=== PATIENT | female | born 1950 | race Caucasian/White ===

== ENCOUNTER → 2019-08-26 13:57 | Outpatient (CLI) | payer MEDICARE, SELFPAY ==
--- NOTE | ~2019-08-26 | MM_ITS ---
EXAMINATION: MM diagnostic aster LT w liliya HISTORY: History of breast cancer TECHNIQUE: Craniocaudal, mediolateral, and mediolateral oblique 3-D tomosynthesis images of the left breast were performed and synthetic 2-D images were generated. CAD analysis was submitted and interpr eted. COMPARISON: 10/29/2018, 09/08/2012 BREAST PARENCHYMAL COMPOSITION: There are scattered areas of fibroglandular density. FINDINGS: There is no evidence of suspicious mass, calcification, or architectural distortion to sug gest malignancy. There has been no suspicious interval change. IMPRESSION: 1. No mammographic evidence of malignancy. 2. Recommend routine screening mammography in one year. BI-RADS Category 1: Negative Reviewed, dictated and finalized at location A. FACILITY MANAGER
== END ==
PROVIDERS: PCP Family Medicine; Visit Provider Internal Medicine Hematology & Oncology
DX: D05.11 Intraductal carcinoma in situ of right breast (principal)
CPT/HCPCS: 77061; 77065; G0279

== ENCOUNTER 2019-10-11 07:47 | Outpatient (CLI) | payer MEDICARE, SELFPAY ==
[2019-10-11 08:17] LABS: Creatinine Urine 103.3 mg/dL
[2019-10-11 08:21] LABS: MALB Creatinine Ratio 21.2 mg/g (0-30); Microalbumin Urine Random 21.9 mg/L (0-16.7)
[2019-10-11 08:25] LABS: Hemoglobin A1C 5.9 % (<5.7)
[2019-10-11 10:35] LABS: Alanine Aminotransferase 41 U/L (4-35); Albumin Level 4.5 g/dL (3.5-5.1); Alkaline Phosphatase 93 U/L (38-126); Aspartate Amino Transferase 36 U/L (14-36); Bilirubin,Total 0.3 mg/dL (0.2-1.3); Blood Urea Nitrogen 20 mg/dL (7-17); Calcium 8.9 mg/dL (8.4-10.2); Carbon Dioxide 28 mmol/L (22-30); Chloride 99 mmol/L (98-107); Estimated Glomerular Filt Rate > 60; Glucose 106 mg/dL (65-105); Sodium 136 mmol/L (137-145)
== END 2019-10-11 07:48 | disposition home or self-care (01) ==
PROVIDERS: PCP Family Medicine; Visit Provider Family Medicine
DX: I10 Essential (primary) hypertension (principal); E11.9 Type 2 diabetes mellitus without complications
CPT/HCPCS: 36415; 80053; 82043; 83036

== ENCOUNTER → 2020-02-08 14:10 | Outpatient (CLI) | payer MEDICARE, SELFPAY ==
--- NOTE | ~2020-02-08 | MM_ITS ---
EXAMINATION: MM diagnostic aster RT w liliya HISTORY: Six-month follow-up for right breast calcifications, history of right breast DCIS. TECHNIQUE: Additional 3-D tomosynthesis images of the right breast were performed and synthetic 2-D i mages were generated. Magnification views are also obtained. CAD analysis was submitted and interpret ed. COMPARISON: 06/07/2019,11/12/2018, 10/29/2018,09/08/2012 BREAST PARENCHYMAL COMPOSITION: There are scattered areas of fibroglandular density. FINDINGS: There is a persistent group of fine pleomorphic calcifications at the 9:00 location 10 cm f rom the nipple in the right breast. These are located approximately 2.5 cm posterior to the previousl y biopsied DCIS and may have slightly increased in number since the comparison examination. In additi on, morphology is similar to the biopsy-proven DCIS. No suspicious mass or architectural distortion a re identified. IMPRESSION: 1. Persistent suspicious grouped calcifications in the right breast with possible slight increase in number since the prior examination. 2. Stereotactic biopsy is recommended. These findings and recommendations were discussed with Dr. Anamaria Hauser MD at 1522 hours on 02/08/2020. Up to this point, patient has preferred tamoxifen only th erapy. BI-RADS category 4, suspicious findings. Reviewed, dictated and finalized at location A. IMPRESSION: 1. Persistent suspicious grouped calcifications in the right breast with possib le slight increase in number since the prior examination. 2. Stereotactic biopsy is recommended. These findings and recommendations were discussed with Dr. Jono Hauser MD at 1522 hours on 02/08/2020. Up to this po int, patient has preferred tamoxifen only therapy. BI-RADS category 4, suspicious findings.
== END ==
PROVIDERS: PCP Family Medicine; Visit Provider Internal Medicine Hematology & Oncology
DX: D05.10 Intraductal carcinoma in situ of unspecified breast (principal); R92.8 Other abnormal and inconclusive findings on diagnostic imaging of breast
CPT/HCPCS: 77061; 77065; G0279

== ENCOUNTER 2020-03-14 08:42 | Outpatient (CLI) | payer MEDICARE, SELFPAY ==
--- NOTE | ~2020-03-14 | US_ITS ---
US breast RT limited DATE: 03/14/2020 09:51 INDICATION: Indeterminate microcalcifications in right breast TECHNIQUE: High-resolution ultrasound imaging from 8:00 to 12:00 COMPARISON: 02/08/2020 diagnostic right digital mammogram 06/07/2019 diagnostic right digital mammogram 11/12/2018 diagnostic right digital mammogram 09/08/2012 bilateral digital screening mammogram FINDINGS: No suspicious mass or shadowing is detected. There is no sonographic correlate for the subt le microcalcifications identified posteriorly in the upper outer quadrant of the right breast. IMPRESSION: BI-RADS Category 4: Suspicious abnormality; stereotactic biopsy is recommended for the mi crocalcifications in the posterior aspect of the upper outer the quadrant of the right breast which w ere not present on 09/08/2012 mammogram, making arterial calcification unlikely Recommendation: Stereotactic biopsy of right breast microcalcifications in the posterior upper outer quadrant Reviewed, dictated and finalized at Location A. Reviewed, dictated and finalized at location A. IMPRESSION: BI-RADS Category 4: Suspicious abnormality; stereotactic biopsy is recommended for the microcalcifications in the posterior aspect of the upper ou ter the quadrant of the right breast which were not present on 09/08/2012 mammog chloe, making arterial calcification unlikely Recommendation: Stereotactic biopsy of right breast microcalcifications in the posterior upper outer quadrant
--- NOTE | ~2020-03-14 | MM_ITS ---
The patient presented for*detected biopsy of indeterminate microcalcifications in the posterior upper outer quadrant of the right breast. At the mammography department within the cancer Center I reviewed the patient's 02/08/2020 diagnostic right digital mammogram, with comparison to 06/07/2019 and 10/29/2018 mammogram examinations as well. T here were relatively stable microcalcifications in a relatively linear distribution, raising concern for possible arterial calcifications. For this reason, I requested an ultrasound examination of the involved area. On that ultrasound exami nation there was no sonographic correlate; there were no masses or suspicious shadowing. Later, additional mammogram images from 09/08/2012 bilateral digital mammogram screening examination b ecame available. These reveal no calcifications in the area of interest. It is unlikely that rather e xtensive focal arterial calcifications would have developed in this isolated area only in the interva l since 09/08/2012. Therefore I do not believe these arterial calcifications and I would recommend pro ceeding with the stereotactic biopsy at this time. IMPRESSIONS: BI-RADS Category 4: Suspicious abnormality Recommendation: Stereotactic biopsy of upper outer quadrant posterior right breast microcalcification s Reviewed, dictated and finalized at location A. IMPRESSIONS: BI-RADS Category 4: Suspicious abnormality Recommendation: Stereotactic biopsy of upper outer quadrant posterior right kehinde ast microcalcifications
== END 2020-03-14 08:43 | disposition home or self-care (01) ==
LOC: ANHIMG 08:46
PROVIDERS: PCP Family Medicine; Visit Provider Surgery
DX: R92.8 Other abnormal and inconclusive findings on diagnostic imaging of breast (principal)
CPT/HCPCS: 76642

== ENCOUNTER 2020-04-01 07:48 | Outpatient (CLI) | payer MEDICARE, SELFPAY ==
[2020-04-01 08:48] LABS: Basophils Absolute Auto 0.1 K/mm3 (0.0-0.1); Basophils Percent Auto 0.9 % (0.2-1.2); Eosinophils Absolute Auto 0.2 K/mm3 (0-0.3); Eosinophils Percent Auto 2.7 % (0-4.4); Hematocrit 39.6 % (37.0-47.0); Immature Granulocyte Absolute 0.01 K/mm3 (0.00-0.031); Immature Granulocyte Percent A 0.1 % (0-0.5); Lymphocytes Absolute Auto 1.88 K/mm3 (0.9-3.2); Lymphocytes Percent Auto 28.1 % (18.3-44.2); Mean Corpuscular HGB Conc 32.8 g/dl (32-36); Mean Corpuscular Hemoglobin 31.7 pg (26-34); Mean Corpuscular Volume 96.6 fl (80-100); Monocytes Absolute Auto 0.6 K/mm3 (0.1-0.6); Monocytes Percent Auto 8.4 % (2.6-8.5); Neutrophils Percent Auto 59.8 % (45.5-73.1); Platelet Count Result 336 k/mm3 (150-375); Red Cell Distribution Width 13.4 % (11.5-14.5); White Blood Count 6.7 K/mm3 (4.5-10.0)
[2020-04-01 09:01] LABS: Alanine Aminotransferase 32 U/L (4-35); Albumin Level 4.5 g/dL (3.5-5.1); Alkaline Phosphatase 76 U/L (38-126); Anion Gap 10 mmol/L (8-16); Aspartate Amino Transferase 32 U/L (14-36); Bilirubin,Total 0.7 mg/dL (0.2-1.3); Blood Urea Nitrogen 32 mg/dL (7-17); Calcium 9.1 mg/dL (8.4-10.2); Carbon Dioxide 30 mmol/L (22-30); Chloride 96 mmol/L (98-107); Cholesterol 205 mg/dL (0-200); Estimated Glomerular Filt Rate 50; Glucose 109 mg/dL (65-105); HDL Direct 28 mg/dL; Potassium 3.9 mmol/L (3.4-5.0); Sodium 136 mmol/L (137-145); Triglycerides 216 mg/dL (<150)
[2020-04-01 09:11] LABS: LDL Cholesterol Direct 133 mg/dL
[2020-04-01 09:42] LABS: Vitamin D 25 Hydroxy 40.8 ng/mL
[2020-04-01 10:11] LABS: Hemoglobin A1C 5.7 % (<5.7)
[2020-04-01 12:59] LABS: Microalbumin Urine Random 19.7 mg/L (0-16.7)
[2020-04-01 13:06] LABS: Creatinine Urine 48.4 mg/dL; MALB Creatinine Ratio 40.7 mg/g (0-30)
== END 2020-04-01 07:49 | disposition home or self-care (01) ==
PROVIDERS: PCP Family Medicine; Visit Provider Family Medicine
DX: E78.5 Hyperlipidemia, unspecified (principal); E11.9 Type 2 diabetes mellitus without complications; I10 Essential (primary) hypertension; G62.9 Polyneuropathy, unspecified; E55.9 Vitamin D deficiency, unspecified
CPT/HCPCS: 36415; 80053; 80061; 82043; 82306; 82607; 83036; 84443; 85025

== ENCOUNTER 2020-06-29 12:31 | Outpatient (CLI) | payer MEDICARE, SELFPAY ==
--- NOTE | 2020-06-29 15:00 | NEURO_ITS ---
Impression: # Complains of weakness. Known diabetic. # Polyphasic responses with neurogenic changes in muscles. 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 Nerve Conduction Studies Anti Sensory Summary Table Stim Site NR Peak (ms) P-T Amp (?V) Site1 Site2 Delta-P (ms) Dist (cm) Jorge (m/s) Left Median Anti Sensory (2-3nd Digit) NO RESPONSE Wrist NR Wrist 2-3nd Digit 14.0 Wrist NR Wrist 2-3nd Digit 14.0 Right Median Anti Sensory (2-3nd Digit) Wrist 3.2 28.5 Wrist 2-3nd Digit 3.2 14.0 44 Wrist 3.8 14.4 Wrist 2-3nd Digit 3.2 14.0 44 Left Radial Anti Sensory (Base 1st Digit) Wrist 2.3 11.6 Wrist Base 1st Digit 2.3 0.0 Right Radial Anti Sensory (Base 1st Digit) Wrist 2.6 38.6 Wrist Base 1st Digit 2.6 0.0 Left Ulnar Anti Sensory (5th Digit) Wrist 2.8 15.2 Wrist 5th Digit 2.8 14.0 50 Right Ulnar Anti Sensory (5th Digit) Wrist 2.7 30.9 Wrist 5th Digit 2.7 14.0 52 Motor Summary Table Stim Site NR Onset (ms) O-P Amp (mV) Site1 Site2 Delta-0 (ms) Dist (cm) Jorge (m/s) Left Median Motor (Abd Poll Brev) Wrist 4.2 0.8 Elbow Wrist 5.3 29.0 55 Elbow 9.5 0.7 Right Median Motor (Abd Poll Brev) Wrist 3.9 3.3 Elbow Wrist 5.9 28.0 47 Elbow 9.8 1.6 Left Ulnar Motor (Abd Dig Minimi) Wrist 3.0 4.5 A Elbow Wrist 5.5 30.0 55 A Elbow 8.5 3.0 Right Ulnar Motor (Abd Dig Minimi) Wrist 3.3 4.9 A Elbow Wrist 5.9 31.0 53 A Elbow 9.2 3.2 F Wave Studies NR F-Lat (ms) L-R F-Lat (ms) Left Median (Mrkrs) (Abd Poll Brev) 25.90 1.46 Right Median (Mrkrs) (Abd Poll Brev) 27.36 1.46 Left Ulnar (Mrkrs) (Abd Dig Min) 26.66 0.77 Right Ulnar (Mrkrs) (Abd Dig Min) 25.88 0.77 EMG Side Muscle Nerve Root Ins Act Fibs Amp Dur Recrt Comment Right 1stDorInt Ulnar C8-T1 Nml Nml Decr >12ms Reduced Right Ext Indicis Radial (Post Int) C7-8 Nml Nml Nml Nml Nml Right Ext Digitorum Radial (Post Int) C7-8 Nml Nml Decr >12ms Reduced Right BrachioRad Radial C5-6 Nml Nml Nml Nml Nml Right PronatorTeres Median C6-7 Nml Nml Nml Nml Nml Right Abd Poll Brev Median C8-T1 Nml Nml Decr >12ms Reduced Left 1stDorInt Ulnar C8-T1 Nml Nml Decr >12ms Reduced Left Ext Indicis Radial (Post Int) C7-8 Nml Nml Nml Nml Nml Left Ext Digitorum Radial (Post Int) C7-8 Nml Nml Decr >12ms Reduced Left BrachioRad Radial C5-6 Nml Nml Nml Nml Nml Left PronatorTeres Median C6-7 Nml Nml Nml Nml Nml Left Abd Poll Brev Median C8-T1 Nml Nml Decr >12ms Reduced Right ABD Dig Min Ulnar C8-T1 Nml Nml Decr >12ms Reduced Left ABD Dig Min Ulnar C8-T1 Nml Nml Decr >12ms Reduced MTDD
== END 2020-06-29 12:32 | disposition home or self-care (01) ==
PROVIDERS: PCP Family Medicine; Visit Provider Psychiatry & Neurology Neurology
DX: G62.9 Polyneuropathy, unspecified (principal)
CPT/HCPCS: 95886; 95911

== ENCOUNTER → 2020-07-06 09:19 | Outpatient (CLI) | payer MEDICARE, SELFPAY ==
--- NOTE | ~2020-07-06 | MM_ITS ---
EXAMINATION: MM diagnostic aster BI w liliya HISTORY: Follow-up right breast calcifications. History of DCIS. TECHNIQUE: Additional 3-D tomosynthesis images of the breasts were performed and synthetic 2-D images were generated. CAD analysis was submitted and interpreted. COMPARISON: Comparison to multiple prior studies sequentially, with oldest reviewed study dated 05/28. BREAST PARENCHYMAL COMPOSITION: Breast composed of scattered areas of fibroglandular density. FINDINGS: The there is a tissue marker from previous biopsy in the upper outer quadrant of the right breast. Just posterior to the biopsy clip there is a cluster of indeterminate calcifications which marshall ve increased slightly in number and density compared with prior studies. IMPRESSION: 1. Clustered indeterminate right breast calcifications, upper outer quadrant. 2. Stereotactic right breast biopsy is strongly recommended. BI-RADS category 4, suspicious findings. Dr. Mascorro discussed with Dr. Jono Hauser MD at 07/06/2020 11:08 TRUCK SALES REPRESENTATIVE. Reviewed, dictated and finalized at location A. K SALES REPRESENTATIVE
== END ==
PROVIDERS: PCP Family Medicine; Visit Provider Internal Medicine Hematology & Oncology
DX: D05.11 Intraductal carcinoma in situ of right breast (principal); R92.8 Other abnormal and inconclusive findings on diagnostic imaging of breast
CPT/HCPCS: 77062; 77066; G0279

== ENCOUNTER → 2020-10-10 12:03 | Outpatient (CLI) | payer MEDICARE, SELFPAY ==
--- NOTE | ~2020-10-10 | XR_ITS ---
EXAMINATION: XR_[id number]_CR EXAM DATE: 10/10/2020 12:31 INDICATION: Neuropathy in bilateral hands x 4-6 months getting worse. No recent injury. No surgery. TECHNIQUE: Cervical spine frontal, lateral, swimmers projection. There is no prior study for compar tristian. FINDINGS: Severe disc disease at C5-6 and C6-7, moderate to severe at C3-4. There is 2 mm degenerati ve anterolisthesis C4 on C5 and retrolisthesis C5 on C6. There is severe cervical arthropathy and mercy pect significant multilevel neural foraminal stenosis. There are no acute fractures identified. Preve rtebral soft tissue and pre-dens space are within normal limits. IMPRESSION: Severe cervical spondylosis. Reviewed, dictated and finalized at location A.
== END ==
PROVIDERS: Visit Provider Nurse Practitioner
DX: R20.2 Paresthesia of skin (principal); M47.892 Other spondylosis, cervical region
CPT/HCPCS: 72040

== ENCOUNTER 2020-10-10 12:42 | Outpatient (CLI) | payer MEDICARE, SELFPAY ==
[2020-10-10 13:57] LABS: Alanine Aminotransferase 48 U/L (4-35); Albumin Level 4.6 g/dL (3.5-5.1); Alkaline Phosphatase 84 U/L (38-126); Anion Gap 11 mmol/L (8-16); Aspartate Amino Transferase 44 U/L (14-36); Bilirubin,Total 0.5 mg/dL (0.2-1.3); Blood Urea Nitrogen 20 mg/dL (7-17); Calcium 9.6 mg/dL (8.4-10.2); Carbon Dioxide 29 mmol/L (22-30); Chloride 95 mmol/L (98-107); Estimated Glomerular Filt Rate 49; Glucose 104 mg/dL (65-105); Potassium 3.8 mmol/L (3.4-5.0); Sodium 135 mmol/L (137-145)
== END 2020-10-10 12:43 | disposition home or self-care (01) ==
PROVIDERS: Visit Provider Family Medicine
DX: E11.9 Type 2 diabetes mellitus without complications (principal); I10 Essential (primary) hypertension
CPT/HCPCS: 36415; 80053; 83036

== ENCOUNTER → 2021-01-01 08:47 | Outpatient (CLI) | payer MEDICARE, SELFPAY ==
--- NOTE | ~2021-01-01 | MMUS_ITS ---
EXAMINATION: MM diagnostic aster RT w liliya, US breast RT limited HISTORY: Microcalcifications TECHNIQUE: ML, MLO and craniocaudal 3-D tomosynthesis images of the right breast were performed and s ynthetic 2-D images were generated. Magnification views in all 3 projections. CAD analysis was submit malgorzata and interpreted. High resolution upper outer and lower-outer right breast ultrasound was performe d. COMPARISON: 07/06/2020 bilateral diagnostic digital mammogram 03/14/2020 limited right breast ultrasound 02/08/2020, 06/07/2019, 11/12/2018 diagnostic right digital mammogram examinations BREAST PARENCHYMAL COMPOSITION: The breasts are almost entirely fatty. FINDINGS: MAMMOGRAPHIC FINDINGS: There is a biopsy marker in the outer mid right breast; history of prior diagnosis of ductal carcinom a in situ. Pleomorphic microcalcifications are again noted in the posterior outer mid right breast, in a branchi ng configuration. These are relatively stable since 11/12/2018 but still suspicious in appearance. Arnulfo reotactic biopsy is recommended. Occasional benign calcifications are noted elsewhere in the right breast. No suspicious mass, architectural distortion, skin thickening or retraction is noted. ULTRASOUND: Upper outer and lower-outer right breast ultrasound examination reveals no suspicious mass or shadowi ng. IMPRESSION: 1. Suspicious persistent grouped microcalcifications in the posterior outer mid right breast 2. Stereotactic biopsy should be considered. BI-RADS category 4, suspicious findings; stereotactic right breast biopsy should be considered. Reviewed, dictated and finalized at location A. IMPRESSION: 1. Suspicious persistent grouped microcalcifications in the posterior outer mid right breast 2. Stereotactic biopsy should be considered. BI-RADS category 4, suspicious findings; stereotactic right breast biopsy shoul d be considered.
== END ==
PROVIDERS: PCP Family Medicine; Visit Provider Internal Medicine Hematology & Oncology
DX: R92.0 Mammographic microcalcification found on diagnostic imaging of breast (principal); R92.8 Other abnormal and inconclusive findings on diagnostic imaging of breast
CPT/HCPCS: 76642; 77061; 77065; G0279

== ENCOUNTER → 2021-01-09 13:26 | Outpatient (CLI) | payer MEDICARE, SELFPAY ==
--- NOTE | 2021-01-23 15:21 | WPDHOMESLEEP ---
Sleep Study - Home Unattended Date of Study: 01/09/21 Ordering Provider: Alana Delgado MD Interpreting Provider: Robyn Saul MD Home Sleep Study Type: Apnea Link Air Height: 1.7 m Weight: 95.254 kg Body Mass Index: 32.8 Neck Circumference (inches): 15.5 [place]: 13 Reason for Sleep Study Hypersomnolence Sleep History Paty Vaughn is a 70 year old female who is always tired and sleepy during the day. She wakes up throughout the night to urinate. She has neuropathy in her legs and feet. She does not awaken from sleep feeling short of breath. She rarely awakens at night with heartburn, belching or coughing. She frequently snores. She does not wake up gasping for breath at night. She does not have breathing problems at night observed by others. She rarely sweats excessively at night. She does not notice her heart pounding or beating irregularly night. She frequently falls asleep during the day frequently falls asleep involuntarily, rarely falls asleep while driving. She does not fall asleep with laughing or crying. She does not have loss of muscle tone was strong emotion. She frequently has daytime difficulties due to excessive sleepiness. She does not feel paralyzed on waking or falling asleep. She occasionally has vivid dreamlike scenes upon awakening or falling asleep. She does not feel afraid to go to sleep. She rarely has nightmares. She occasionally remembers her dreams. She occasionally has racing thoughts. She occasionally feels sad or depressed. She rarely has anxiety. She frequently has muscular tension. She occasionally notices parts of her body jerking. She frequently kicks at night, frequently has crawling and aching feelings in her legs and frequently has leg pain at night. She does not have morning jaw pain and does not grind her teeth during sleep. She frequently is bothered by pain during the day, frequently awakened by pain at night and frequently wakes up feeling stiff in the morning with sore achy muscles. She frequently wakes up with pain in the spine and neck. She has panic, dizziness, sexual problems and memory problems. She sometimes has concentration difficulties. Normal bedtime between 8 and 9:00 p.m. falling asleep in 5-10 minutes waking 1-2 times at night. While awake she stays awake for 5-10 minutes. During these break she goes to the bathroom, watches TV and takes medications. She wakes in the morning between 430 and 5:00 a.m. On the weekends she goes to bed at 9 and wakes between 9 and 10:00 a.m., and this indicates recovery sleep on the weekends. She sometimes takes naps. A short nap may be refreshing. She is usually drowsy in the morning for 3 hours or longer. She feels better in the evening compared other times of day. Habits: she never smokes. No caffeine or alcohol. Recreational: CBD. [facility] Past Medical History Medical History CKD (chronic kidney disease) stage 3, GFR 30-59 ml/min Depression DJD (degenerative joint disease) of thoracic spine Dyslipidemia Essential (primary) hypertension Female stress incontinence Metatarsal fracture #5 - 1997 Osteopenia Peripheral polyneuropathy Plantar fasciitis Reactive depression 1997 Type 2 diabetes mellitus with hyperglycemia, without long-term current use of insulin Unspecified osteoarthritis, unspecified site Unsteady gait Urinary Incontinence Vitamin D deficiency Surgical History Surgical History History of arthroscopic knee surgery 2000 History of biopsy right breast - DCIS - 2017 History of foot surgery left foot in the History of hip surgery right hip - Nov, 2017 History of removal of cyst left breast - 2003 History of wisdom tooth extraction Family History Family History Other Diabetes mellitus Family history of coronary ar
[2021-01-23 15:23] VITALS: BMI 32.8
== END ==
PROVIDERS: PCP Family Medicine; Visit Provider Family Medicine
DX: G47.10 Hypersomnia, unspecified (principal); G47.33 Obstructive sleep apnea (adult) (pediatric)
CPT/HCPCS: 95806

== ENCOUNTER 2021-03-16 08:44 | Outpatient (CLI) | payer MEDICARE, SELFPAY ==
--- NOTE | 2021-04-09 14:13 | WPDSLEEPSTUD ---
Sleep Study Date of Study: 03/16/21 Ordering Provider: Alana Delgado MD Interpreting Physician: Robyn Saul MD Sleep Study Type: CPAP Titration Height: 1.7 m Weight: 95.254 kg Body Mass Index: 32.8 Neck Circumference (inches): 17 [place]: 6 Reason for Sleep Study *ApneaLink home sleep test 01/15/2021 with moderate mixed sleep apnea with an AHI of 17, desaturation to 80%, 11 minutes spent below 88% which was 3% of the study and snoring. She had a mixture of apneas including unclassified, obstructive and central apneas were the majority 47%. She presents for titration. Sleep History Paty Vaughn is a 70 year old female who is always tired and sleepy during the day. She wakes up throughout the night to urinate. She has neuropathy in her legs and feet. She does not awaken from sleep feeling short of breath. She rarely awakens at night with heartburn, belching or coughing. She frequently snores. She does not wake up gasping for breath at night. She does not have breathing problems at night observed by others. She rarely sweats excessively at night. She does not notice her heart pounding or beating irregularly night. She frequently falls asleep during the day frequently falls asleep involuntarily, rarely falls asleep while driving. She does not fall asleep with laughing or crying. She does not have loss of muscle tone was strong emotion. She frequently has daytime difficulties due to excessive sleepiness. She does not feel paralyzed on waking or falling asleep. She occasionally has vivid dreamlike scenes upon awakening or falling asleep. She does not feel afraid to go to sleep. She rarely has nightmares. She occasionally remembers her dreams. She occasionally has racing thoughts. She occasionally feels sad or depressed. She rarely has anxiety. She frequently has muscular tension. She occasionally notices parts of her body jerking. She frequently kicks at night, frequently has crawling and aching feelings in her legs and frequently has leg pain at night. She does not have morning jaw pain and does not grind her teeth during sleep. She frequently is bothered by pain during the day, frequently awakened by pain at night and frequently wakes up feeling stiff in the morning with sore achy muscles. She frequently wakes up with pain in the spine and neck. She has panic, dizziness, sexual problems and memory problems. She sometimes has concentration difficulties. Normal bedtime between 8 and 9:00 p.m. falling asleep in 5-10 minutes waking 1-2 times at night. While awake she stays awake for 5-10 minutes. During these break she goes to the bathroom, watches TV and takes medications. She wakes in the morning between 430 and 5:00 a.m. On the weekends she goes to bed at 9 and wakes between 9 and 10:00 a.m., and this indicates recovery sleep on the weekends. She sometimes takes naps. A short nap may be refreshing. She is usually drowsy in the morning for 3 hours or longer. She feels better in the evening compared other times of day. Habits: She never smoked tobaco. No caffeine or alcohol. Recreational: CBD. [facility] Past Medical History Medical History CKD (chronic kidney disease) stage 3, GFR 30-59 ml/min Depression DJD (degenerative joint disease) of thoracic spine Dyslipidemia Essential (primary) hypertension Female stress incontinence Metatarsal fracture #5 - 1998 Osteopenia Peripheral polyneuropathy Plantar fasciitis Reactive depression 1998 Type 2 diabetes mellitus with hyperglycemia, without long-term current use of insulin Unspecified osteoarthritis, unspecified site Unsteady gait Urinary Incontinence Vitamin D deficiency Surgical History Surgical History History of arthroscopic knee surgery 2000 History of biopsy right breast - DCIS - 2018 History of foot surgery left foot in the s Hi
[2021-04-09 14:21] VITALS: BMI 32.8
== END 2021-03-17 06:59 | disposition home or self-care (01) ==
LOC: ANHCSM 08:45
PROVIDERS: PCP Family Medicine; Visit Provider Family Medicine
DX: G47.33 Obstructive sleep apnea (adult) (pediatric) (principal)
CPT/HCPCS: 95811

== ENCOUNTER 2021-04-07 06:53 | Outpatient (CLI) | payer MEDICARE, SELFPAY ==
[2021-04-07 07:43] LABS: Alanine Aminotransferase 54 U/L (4-35); Albumin Level 4.4 g/dL (3.5-5.1); Alkaline Phosphatase 88 U/L (38-126); Anion Gap 9 mmol/L (8-16); Aspartate Amino Transferase 52 U/L (14-36); Bilirubin,Total 0.4 mg/dL (0.2-1.3); Blood Urea Nitrogen 16 mg/dL (7-17); Calcium 9.3 mg/dL (8.4-10.2); Carbon Dioxide 31 mmol/L (22-30); Chloride 96 mmol/L (98-107); Cholesterol 211 mg/dL (0-200); Estimated Glomerular Filt Rate > 60; Glucose 113 mg/dL (65-110); HDL Direct 37 mg/dL; Potassium 3.9 mmol/L (3.4-5.0); Sodium 136 mmol/L (137-145); Triglycerides 162 mg/dL (<150)
[2021-04-07 07:47] LABS: Basophils Absolute Auto 0.1 K/mm3 (0.0-0.1); Basophils Percent Auto 0.9 % (0.2-1.2); Eosinophils Absolute Auto 0.2 K/mm3 (0-0.3); Hematocrit 42.7 % (37.0-47.0); Hemoglobin 14.1 g/dL (12.0-15.0); Hemoglobin A1C 6.5 % (<5.7); Immature Granulocyte Absolute 0.03 K/mm3 (0.00-0.031); Immature Granulocyte Percent A 0.4 % (0-0.5); Lymphocytes Absolute Auto 1.84 K/mm3 (0.9-3.2); Lymphocytes Percent Auto 23.7 % (18.3-44.2); Mean Corpuscular Hemoglobin 30.9 pg (26-34); Mean Corpuscular Volume 93.4 fl (80-100); Mean Platelet Volume 9.7 fl (7.4-10.4); Monocytes Absolute Auto 0.6 K/mm3 (0.1-0.6); Monocytes Percent Auto 7.6 % (2.6-8.5); Neutrophils Percent Auto 64.4 % (45.5-73.1); Platelet Count Result 334 k/mm3 (150-375); Red Blood Count 4.57 M/mm3 (4.2-5.4); Red Cell Distribution Width 13.5 % (11.5-14.5); White Blood Count 7.8 K/mm3 (4.5-10.0)
[2021-04-07 07:50] LABS: Creatinine Urine 70.8 mg/dL
[2021-04-07 07:53] LABS: MALB Creatinine Ratio 22.6 mg/g (0-30)
[2021-04-07 07:54] LABS: LDL Cholesterol Direct 132 mg/dL
[2021-04-07 08:44] LABS: Vitamin D 25 Hydroxy 66.5 ng/mL
== END 2021-04-07 06:54 | disposition home or self-care (01) ==
PROVIDERS: PCP Family Medicine; Visit Provider Family Medicine
DX: E55.9 Vitamin D deficiency, unspecified (principal); I10 Essential (primary) hypertension; E78.5 Hyperlipidemia, unspecified; E11.9 Type 2 diabetes mellitus without complications
CPT/HCPCS: 36415; 80053; 80061; 82043; 82306; 83036; 84443; 85025

== ENCOUNTER 2021-05-24 12:29 | Outpatient (CLI) | payer MEDICARE, SELFPAY ==
--- NOTE | ~2021-05-24 | DEXA_ITS ---
Bone Density Report Name: Paty Vaughn Age: 70 Sex: Female Ethnicity: White Date of : 1950 Indication: osteopenia; height loss; prior fracture; cancer; postmenopausal Referring Provider: Monse Delgado Study: Bone densitometry was performed. Exam Date: May 24, 2021 Accession number: [id number] Bone Density: Region BMD T-score Z-score Classification AP Spine (L1, L3) 1.175 1.5 3.4 Normal Femoral Neck (Left) 0.540 -2.8 -1.1 Osteoporosis Total Hip (Left) 0.820 -1.0 0.4 Normal World Health Organization criteria for BMD impression classify patients as: Normal (T-score at or above -1.0), Osteopenia (T-score between -1.0 and -2.5), or Osteoporosis (T-score at or below -2.5). 10-year Fracture Risk: FRAX not reported because: Some T-score for Spine Total or Hip Total or Femoral Neck at or below -2.5 Prior hip or vertebral fracture Previous Exams: Region Exam Age BMD T-score BMD Change BMD Change Date g/cm2 vs Baseline vs Previous AP Spine(L1, L3) 05/24/2021 70 1.175 1.5 0.084(7.7%)# 0.123(11.7%)# 10/29/2018 68 1.052 0.4 -0.039(-3.6%)# -0.039(-3.6%)# 09/08/2012 62 1.091 0.7 Total Hip(Left) 05/24/2021 70 0.820 -1.0 -0.022(-2.7%)# 0.023(2.9%) 10/29/2018 68 0.797 -1.2 -0.046(-5.4%)# -0.046(-5.4%)# 09/08/2012 62 0.843 -0.8 *Denotes significance at 95% confidence level, LSC for AP Spine = 0.022 g/cm2, LSC for Total Hip = 0.027 g/cm2 Clinical Information Provided by Patient: Have had a previous hip or vertebral fracture Has had a low trauma fracture Has used the following medications: Vitamin D, Calcium Has the following medical conditions: Cancer Patient maximum height was 67 Menopause Age: 52 No regular weight bearing exercise Drinks caffeinated beverages Onset of menses at age 19 Number of children 0 Impression: The patient has established osteoporosis, based on the Left Femoral Neck T-score and the existence of a prior fracture. The patient has risk factors, including: previous fracture. No significant bone loss was observed. Discussion: HIGH RISK OF FRACTURE. BONE DENSITY IS UNDESIRABLY LOW AT ONE OR MORE SKELETAL SITES, CONSISTENT WITH POSTMENOPAUSAL OSTEOPOROSIS. This patient's lowest T-score, in a patient who has previously fractured, meets the World Health Organization's (WHO) criteria for severe osteoporosis. In untreated patients, the risk of osteoporotic fracture increases approximately two-fold for each 1.0 SD decrease in T-score. Low bone density is not the only risk factor for
== END 2021-05-24 12:30 | disposition home or self-care (01) ==
LOC: ANHIMG 12:32
PROVIDERS: PCP Family Medicine; Visit Provider Family Medicine
DX: Z78.0 Asymptomatic menopausal state (principal); M81.0 Age-related osteoporosis without current pathological fracture
CPT/HCPCS: 77080

== ENCOUNTER → 2021-10-01 09:11 | Outpatient (CLI) | payer MEDICARE, SELFPAY ==
--- NOTE | ~2021-10-01 | MM_ITS ---
EXAMINATION: MM diagnostic aster BI w liliya HISTORY: History of breast cancer. TECHNIQUE: Additional 3-D tomosynthesis images of the breasts were performed and synthetic 2-D images were generated. CAD analysis was submitted and interpreted. COMPARISON: Comparison to multiple prior studies sequentially, with oldest reviewed study dated 02/16. BREAST PARENCHYMAL COMPOSITION: Breast composed of scattered areas of fibroglandular density. FINDINGS: There are no suspicious masses, calcifications or architectural distortion in either breast to suggest malignancy. IMPRESSION: 1. No mammographic evidence for malignancy in either breast. 2. Routine yearly screening mammogram and regular clinical breast examination are recommended. BI-RADS Category 1: Negative Reviewed, dictated and finalized at location A. WORKER IMPRESSION: 1. No mammographic evidence for malignancy in either breast. 2. Routine yearly screening mammogram and regular clinical breast examination a re recommended. BI-RADS Category 1: Negative
== END ==
PROVIDERS: PCP Family Medicine; Visit Provider Internal Medicine Hematology & Oncology
DX: D05.11 Intraductal carcinoma in situ of right breast (principal)
CPT/HCPCS: 77062; 77066; G0279

== ENCOUNTER 2021-10-05 10:23 | Outpatient (CLI) | payer MEDICARE, SELFPAY ==
[2021-10-05 10:57] LABS: Alanine Aminotransferase 47 U/L (4-35); Albumin Level 4.4 g/dL (3.5-5.1); Alkaline Phosphatase 82 U/L (38-126); Anion Gap 9 mmol/L (8-16); Aspartate Amino Transferase 48 U/L (14-36); Bilirubin,Total 0.4 mg/dL (0.2-1.3); Blood Urea Nitrogen 22 mg/dL (7-17); Calcium 9.5 mg/dL (8.4-10.2); Carbon Dioxide 29 mmol/L (22-30); Chloride 95 mmol/L (98-107); Estimated Glomerular Filt Rate > 60; Glucose 141 mg/dL (65-110); Sodium 133 mmol/L (137-145)
[2021-10-05 12:46] LABS: Hemoglobin A1C 5.9 % (<5.7)
== END 2021-10-05 10:24 | disposition home or self-care (01) ==
LOC: ANHLAB 10:26
PROVIDERS: PCP Family Medicine; Visit Provider Family Medicine
DX: I10 Essential (primary) hypertension (principal); E11.9 Type 2 diabetes mellitus without complications
CPT/HCPCS: 36415; 80053; 83036

== ENCOUNTER → 2022-04-11 08:44 | Outpatient (CLI) | payer MEDICARE, SELFPAY ==
--- NOTE | ~2022-04-11 | MMUS_ITS ---
EXAMINATION: MM diagnostic aster BI w liliya, US breast RT limited HISTORY: History of DCIS of right breast TECHNIQUE: ML, MLO and CC 3-D tomosynthesis images of both breasts were performed and synthetic 2-D i mages were generated. Magnification views of right breast in ML, MLO and CC projections. CAD analysis was submitted and interpreted. High resolution upper outer and lower-outer right breast ultrasound w as performed. COMPARISON: 10/01/2021 diagnostic bilateral mammogram 01/01/2021 diagnostic right mammogram and limited right breast ultrasound 07/06/2020 bilateral diagnostic mammography 03/14/2020 limited right breast ultrasound 02/08/2020 diagnostic right mammogram BREAST PARENCHYMAL COMPOSITION: There are scattered areas of fibroglandular density. FINDINGS: MAMMOGRAPHIC FINDINGS: Indeterminate cluster grouped microcalcifications is noted in the posterior outer mid right breast. S tereotactic biopsy is recommended, particularly given the history of previous DCIS diagnosis. Biopsy marker on the right. Occasional bilateral benign calcifications are noted. No suspicious mass lesion or architectural distortion, skin thickening or retraction is noted. ULTRASOUND: No suspicious mass or shadowing, cyst or other significant sonographic finding is noted in the latera l half of the right breast. IMPRESSION: 1. Indeterminate cluster of grouped microcalcifications in posterior outer mid right breast 2. Stereotactic biopsy of posterior outer mid right breast microcalcifications is recommended BI-RADS category 4, suspicious findings. Dr. Miner telephoned the report and stereotactic biopsy recommendation on 04/11/2022 to ROSANGELA Santoyo, at Serge Hauser's office at 1015 hours Reviewed, dictated and finalized at location A. IMPRESSION: 1. Indeterminate cluster of grouped microcalcifications in posterior outer mid right breast 2. Stereotactic biopsy of posterior outer mid right breast microcalcifications is recommended BI-RADS category 4, suspicious findings. Dr. Miner telephoned the report and stereotactic biopsy recommendation on 022 to ROSANGELA Santoyo, at Dr. Hauser's office at 1015 hours
== END ==
PROVIDERS: PCP Family Medicine; Visit Provider Internal Medicine Hematology & Oncology
DX: D05.11 Intraductal carcinoma in situ of right breast (principal); R92.0 Mammographic microcalcification found on diagnostic imaging of breast
CPT/HCPCS: 76642; 77062; 77066; G0279

== ENCOUNTER 2022-04-13 07:13 | Outpatient (CLI) | payer MEDICARE, SELFPAY ==
[2022-04-13 07:53] LABS: Basophils Absolute Auto 0.1 K/mm3 (0.0-0.1); Basophils Percent Auto 0.9 % (0.2-1.2); Eosinophils Absolute Auto 0.2 K/mm3 (0-0.3); Eosinophils Percent Auto 2.3 % (0-4.4); Hemoglobin 13.7 g/dL (12.0-15.0); Immature Granulocyte Absolute 0.02 K/mm3 (0.00-0.031); Immature Granulocyte Percent A 0.3 % (0-0.5); Lymphocytes Absolute Auto 1.57 K/mm3 (0.9-3.2); Lymphocytes Percent Auto 22.5 % (18.3-44.2); Mean Corpuscular HGB Conc 33.4 g/dl (32-36); Mean Corpuscular Hemoglobin 30.7 pg (26-34); Mean Corpuscular Volume 91.9 fl (80-100); Mean Platelet Volume 9.7 fl (7.4-10.4); Monocytes Absolute Auto 0.4 K/mm3 (0.1-0.6); Monocytes Percent Auto 6.2 % (2.6-8.5); Neutrophils Absolute Auto 4.8 K/mm3 (1.3-6.7); Neutrophils Percent Auto 67.8 % (45.5-73.1); Platelet Count Result 346 k/mm3 (150-375); Red Blood Count 4.46 M/mm3 (4.2-5.4); Red Cell Distribution Width 12.9 % (11.5-14.5)
[2022-04-13 08:09] LABS: Alanine Aminotransferase 42 U/L (6-35); Albumin Level 4.4 g/dL (3.5-5.1); Alkaline Phosphatase 65 U/L (38-126); Anion Gap 11 mmol/L (8-16); Aspartate Amino Transferase 36 U/L (14-36); Bilirubin,Total 0.3 mg/dL (0.2-1.3); Blood Urea Nitrogen 17 mg/dL (7-17); Calcium 9.2 mg/dL (8.4-10.2); Carbon Dioxide 28 mmol/L (22-30); Chloride 93 mmol/L (98-107); Cholesterol 193 mg/dL (0-200); Estimated Glomerular Filt Rate > 60; Glucose 119 mg/dL (65-110); HDL Direct 34 mg/dL; Potassium 3.8 mmol/L (3.4-5.0); Sodium 132 mmol/L (137-145); Triglycerides 202 mg/dL (<150)
[2022-04-13 08:13] LABS: Hemoglobin A1C 6.1 % (<5.7)
[2022-04-13 08:20] LABS: LDL Cholesterol Direct 123 mg/dL
[2022-04-13 08:31] LABS: Creatinine Urine 46.4 mg/dL
[2022-04-13 08:37] LABS: MALB Creatinine Ratio 15.9 mg/g (0-30); Microalbumin Urine Random 7.4 mg/L (0-16.7)
== END 2022-04-13 07:14 | disposition home or self-care (01) ==
PROVIDERS: PCP Family Medicine; Visit Provider Family Medicine
DX: E78.5 Hyperlipidemia, unspecified (principal); Z00.00 Encounter for general adult medical examination without abnormal findings; E11.9 Type 2 diabetes mellitus without complications; E53.8 Deficiency of other specified B group vitamins; E55.9 Vitamin D deficiency, unspecified; I10 Essential (primary) hypertension
CPT/HCPCS: 36415; 80053; 80061; 82043; 82306; 82607; 83036; 84443; 85025

== ENCOUNTER 2022-07-02 12:52 | Outpatient (CLI) | payer MEDICARE, SELFPAY ==
--- NOTE | ~2022-07-02 | MM_ITS ---
MM stereotactic bx RT, MM post biopsy diagnostic RT, MM stereotactic specimen RT EXAMINATION: MM stereotactic bx RT, MM post biopsy diagnostic RT, MM stereotactic specimen RT DATE: Castillo Mascorro M.D. INDICATION: Calcifications in the right breast. Stereotactic core biopsy is requested evaluate for m alignancy.] TECHNIQUE AND FINDINGS: The risks and potential benefits of the procedure were discussed with the patient and written informe d consent was obtained. The patient was placed in the prone position clustered at the table with the right breast in compression, and the area of interest was localized and targeted utilizing digital i maging with stereotaxis. After sterile preparation of the skin, 1% lidocaine was utilized for local anesthesia at the skin pun cture site and 1% lidocaine with epinephrine was utilized for deeper local anesthesia/is about the bi opsy site. A 9G [employer] vacuum assisted biopsy needle was advanced to the level of the calcification o f interest from a lateral approach utilizing stereotactic guidance and a total of 6 tissue core biops ies were obtained. A specimen radiograph demonstrates that the calcifications of interest are included within the tissue cores. A tissue marker clip was then placed at the biopsy site. The needle was removed and hemosta sis was achieved. The patient tolerated the procedure well and there is no evidence of significant i mmediate complication. The patient was given verbal as well as written postprocedural instructions p rior to discharge from the department. Tissue cores were submitted to surgical pathology for histolo gic analysis. A 2-view right unilateral digital mammogram was obtained post procedure and this demonstrates that th e tissue marker clip is in expected position.] IMPRESSION: 1. Successful stereotactic biopsy of calcifications in the upper outer quadrant of the right breast, followed by tissue marker clip placement. Please refer to pathology report for histologic analysis. Reviewed, dictated and finalized at location A. HELPER IMPRESSION: 1. Successful stereotactic biopsy of calcifications in the upper outer quadran t of the right breast, followed by tissue marker clip placement. Please refer to pathology report for histologic analysis. IMPRESSION: 1. Successful stereotactic biopsy of calcifications in the upper outer quadran t of the right breast, followed by tissue marker clip placement. Please refer to pathology report for histologic analysis.
== END 2022-07-02 12:53 | disposition home or self-care (01) ==
PROVIDERS: PCP Family Medicine; Visit Provider Surgery
DX: R92.8 Other abnormal and inconclusive findings on diagnostic imaging of breast (principal)
CPT/HCPCS: 19081; 77065; 88305; 88342; A4648

== ENCOUNTER 2022-08-20 12:49 | Outpatient (CLI) | payer MEDICARE, SELFPAY ==
[2022-08-20 13:46] LABS: Partial Thromboplastin Time 28.9 SECONDS (22.3-36.8); Prothrombin Time 12.8 Seconds (11.1-14.7)
[2022-08-20 13:50] LABS: Anion Gap 10 mmol/L (8-16); Blood Urea Nitrogen 14 mg/dL (7-17); Calcium 9.2 mg/dL (8.4-10.2); Carbon Dioxide 28 mmol/L (22-30); Chloride 95 mmol/L (98-107); Estimated Glomerular Filt Rate > 60; Glucose 107 mg/dL (65-110); Potassium 3.9 mmol/L (3.4-5.0); Sodium 133 mmol/L (137-145)
== END 2022-08-20 12:50 | disposition home or self-care (01) ==
PROVIDERS: Anesthesiology; PCP Family Medicine; Visit Provider Surgery
DX: E11.65 Type 2 diabetes mellitus with hyperglycemia (principal); N18.30 Chronic kidney disease, stage 3 unspecified; E11.22 Type 2 diabetes mellitus with diabetic chronic kidney disease
CPT/HCPCS: 36415; 80048; 85610; 85730

== ENCOUNTER 2022-09-11 00:58 | Day surgery (SDC) | payer MEDICARE, SELFPAY ==
[2022-08-19 15:02] VITALS: BMI 35.6
--- NOTE | 2022-08-19 15:39 | PC.NURSE ---
Report to the Outpatient Waiting Room, entrance under the green pavilion located off [address], at time __8:30AM_(FOR NEEDLE LOC IN RADIOLOGY AT 9:30AM)__ on date __08/22/22 . Planned Procedure Time: __12:00PM . Time changes happen often and if your time is changed the preop area will call you the afternoon before. - You and your visitor will be asked to self-screen and do not enter if you have any COVID symptoms. - Only one visitor is requested with a max of two and NO children visitors are allowed at this time. - The patient visitor may be requested to leave or wait in car when not with patient due to distancing restrictions. - A mask is optional within the hospital at this time. Patients may have clear liquids (water, carbonated beverages, clear teas, apple juice) until 3 hours prior to surgery with a maximum of 20 ounces. - No food from midnight until time of surgery Take the following medications with a SIP of water the morning of surgery: ___GABAPENTIN DO NOT STOP ANY OF YOUR OTHER PRESCRIPTION MEDICATIONS PRIOR TO SURGERY ?EXCEPT THE FOLLOWING Medications to discontinue per physician ____HOLD ALL VITAMINS/SUPPLEMENTS 3 DAYS PRE-OP Date to take last dose__08/19/22 Please no make-up, nail greenlandic, hairspray, perfume, deodorant, or body powder the day of surgery. No jewelry (including any body piercings) or valuables the day of surgery, leave them at home. Please take a shower or bath the night before, or the morning of, surgery with an antibacterial soap. Wear comfortable, loose fitting clothing. Children are encouraged to wear pajamas. - Jewelry must be removed prior to entering the operating room. Rings and piercings that are not removed may be cut off. - The hospital will not accept responsibility for valuables. - Please leave all valuables, including medications, at home the day of surgery. If you are going home after surgery, a licensed pickup driver must drive you home. - NO public transportation without another adult if you receive anesthesia. - We recommend that an adult stay with you for 24 hours following discharge. - We also recommend that you do not drive, make important decision, drink alcoholic beverages, or take any drugs that were not prescribed by your health care provider for at least 24 hours after your discharge time. Follow any additional instructions given to you from your surgeon. If you or anyone in your household have experienced Covid symptoms in the past week, please notify your surgeon or the nurse liaison at the phone number below for possible testing. Telephone instructions given to _PATIENT and asked if any additional questions and then verbalized understanding. Patient advised to call surgeon office or pre surgery nurse liaison [phone] if any additional questions.
--- NOTE | 2022-09-02 12:33 | PC.NURSE ---
Report to the Outpatient Waiting Room, entrance under the green pavilion located off [facility], at time __0630 on date 09/11/22 . Planned Procedure Time: _1000 . NEEDLE LOC AT 0730 Time changes happen often and if your time is changed the preop area will call you the afternoon before. - You and your visitor will be asked to self-screen and do not enter if you have any COVID symptoms. - Only one visitor is requested with a max of two and NO children visitors are allowed at this time. - The patient visitor may be requested to leave or wait in car when not with patient due to distancing restrictions. - A mask is optional within the hospital at this time. Patients may have clear liquids (water, carbonated beverages, clear teas, apple juice) until 3 hours prior to surgery with a maximum of 20 ounces. - No food from midnight until time of surgery - Infants may have breast milk until 4 hours before surgery, infant formula 6 hours prior to surgery. - Children will be allowed to drink immediately following surgery. If applicable, please bring a bottle or sippy cup to assist with drinking. Juice, water, soda, and popsicles are readily available. For infants on formula, please bring formula the day of surgery. Pacifiers are allowed. Take the following medications with a SIP of water the morning of surgery: __GABAPENTIN DO NOT STOP ANY OF YOUR OTHER PRESCRIPTION MEDICATIONS PRIOR TO SURGERY ?EXCEPT THE FOLLOWING Medications to discontinue per physician ____ALL VITAMINS/SUPPLEMENTS 3 DAYS PRE OP . LAST DOSE 09/07/22 Please no make-up, nail malay, hairspray, perfume, deodorant, or body powder the day of surgery. No jewelry (including any body piercings) or valuables the day of surgery, leave them at home. Please take a shower or bath the night before, or the morning of, surgery with an antibacterial soap. Wear comfortable, loose fitting clothing. Children are encouraged to wear pajamas. - Jewelry must be removed prior to entering the operating room. Rings and piercings that are not removed may be cut off. - The hospital will not accept responsibility for valuables. - Please leave all valuables, including medications, at home the day of surgery. If you are going home after surgery, a licensed public transit bus driver must drive you home. - NO public transportation without another adult if you receive anesthesia. - We recommend that an adult stay with you for 24 hours following discharge. - We also recommend that you do not drive, make important decision, drink alcoholic beverages, or take any drugs that were not prescribed by your health care provider for at least 24 hours after your discharge time. For Pediatric surgeries, we recommend two adults accompany the child home. Follow any additional instructions given to you from your surgeon. If you or anyone in your household have experienced Covid symptoms in the past week, please notify your surgeon or the nurse liaison at the phone number below for possible testing. Telephone instructions given to ___PATIENT and asked if any additional questions and then verbalized understanding. Patient advised to call surgeon office or pre surgery nurse liaison [phone] if any additional questions.
--- NOTE | 2022-09-02 12:35 | PC.NURSE ---
PT STATES NO CHANGE IN HEALTH HX SINCE LAST INTERVIEW ON 08/19/22
--- NOTE | 2022-09-10 13:19 | PM.SD2 ---
Same Day Admit/Disch: HPI History of Present Illness Narrative: Paty Vaughn is a 72 year old female who was noted in October of 2018 to have pleomorphic calcifications at the 9 o'clock position of the right breast. She underwent stereotactic biopsy of these microcalcifications 02/16/2019. 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 ER [place] staining were both markedly positive. Patient opted not to proceed with surgical excision at that time. She did see Dr. Hauser, oncologist, who has had her on tamoxifen ever since the diagnosis in 2018. She has had several additional mammograms and ultrasounds which have continued to show the microcalcifications. I saw her in February of 2020 and recommended lumpectomy and radiation treatment. She sought my opinion again in May of 2022. Recent mammogram at that time suggested possibly another area of concern a bit deeper in the right breast. I recommended another stereotactic biopsy which the patient had on 07/02/2022. This showed atypical ductal hyperplasia. By my review of the mammograms, the area recently biopsied appears to be closer to the chest wall than the area of DCIS noted in 2019. Both marker clips are apparent on breast imaging. After additional discussion, I have recommended that the patient proceed with excisional biopsy of both these lesions. I have discussed the situation and the mammograms with Dr. Mendenhall, radiologist, and the plan is to wire localize both lesions with the intention of performing lumpectomy of the DCIS as well as excision of the atypical ductal hyperplasia. Patient is taken to mammography, and then subsequently, surgery for this purpose as an outpatient. [facility] Past Medical History Medical History Arthritis CKD (chronic kidney disease) stage 3, GFR 30-59 ml/min Depression Diabetes DJD (degenerative joint disease) of thoracic spine Dyslipidemia Essential (primary) hypertension Female stress incontinence History of cancer Metatarsal fracture #5 - 1997 Osteoporosis Peripheral polyneuropathy Plantar fasciitis Reactive depression 1997 Type 2 diabetes mellitus with hyperglycemia, without long-term current use of insulin Unspecified osteoarthritis, unspecified site Unsteady gait Urinary Incontinence Vitamin D deficiency Surgical History Surgical History History of arthroscopic knee surgery 2000 History of biopsy right breast - DCIS - 2018 History of foot surgery left foot in the History of hip surgery right hip - Nov, 2017 History of removal of cyst left breast - 2003 History of wisdom tooth extraction Family History Family History Father Heart disease Mother Heart disease Cerebrovascular accident Sibling Heart disease Other Diabetes mellitus Family history of coronary artery disease Hypertension Social History Social History Smoking packs per day: 1 Smoking cigarettes per day: 20.0 Years smoked: 2 Smoking pack-years: 2.00 Smoking status: Former smoker Tobacco type: cigarettes Second hand tobacco smoke exposure: No Smoking end date: 01/25/05 Alcohol intake: former Alcohol use details: consumes 1 glass of wine occasionally Substance use: never Substance use type: does not use Living arrangements: with family Additional living arrangements comments: S.O. Occupation/Education: retired Gender identity (if verbalized by the patient): Female Sexual Orientation (if Verbalized by the Patient): Straight or Heterosexual Spiritual care concerns: No Same Day Admit/Disch: Med Pre-admit Medications Home Medications Medication Instructions Recorded Confirmed Type lancets 30 gauge and blood glucose #200 ea 08/23/19 09/02/22 History strips combo pa
--- NOTE | ~2022-09-11 | MM_ITS ---
CORRECTED REPORT added to report. 09/11/2022 se This report was recreated on 09/11/2022. Original report was CARDIOVASCULAR SERVICE LINE. MM needle loc RT, MM surgical specimen RT, MM needle loc RT ea add DATE: 09/11/2022 12:00 (accession [id number]), 09/11/2022 11:48 (accession [id number]) INDICATION: Preoperative mammographically guided percutaneous wire localization of 2 right breast localization markers TECHNIQUE: The purpose of the procedure, technique and potential complications including bleeding were discussed with the patient. The patient verbalized understanding and gave consent. Timeout procedure confirmed proper patient, procedure and sidedness. The right breast was placed in lateral medial compression with biopsy grid over the lateral aspect of the right breast. 2 biopsy markers were visible. The skin over the lateral aspect of the right breast was prepared with sterile Betadine. 1% lidocaine was administered to 2 separate sites, over the 2 separate biopsy markers. 2 separate [place] [facility] needles were introduced through the lateral skin into the breast directed toward each of the 2 biopsy markers. Lateral medial mammographic exposure revealed appropriate position of the needles with respect to the markers. Craniocaudal mammographic exposures were utilized to assess and just the depth of the needles 2 appropriate position. The wires were engaged to the tip of the needles and the needles were withdrawn. Final lateral medial and craniocaudal mammographic exposures were performed, revealing each of the wires intermittently associated with the biopsy markers. The patient was very cooperative and tolerated the procedure without complaint or complication. Surgical specimen reveals both biopsy markers and wires within the surgical soft tissue specimen. IMPRESSION: Successful percutaneously placement of wires with mammographic guidance at each of 2 biopsy markers in the lateral right breast Successful surgical excision of both biopsy markers and wires Reviewed, dictated and finalized at [facility]. Reviewed, dictated and finalized at [facility]. CARDIOVASCULAR SERVICE LINE MTDD IMPRESSION: Successful percutaneously placement of wires with mammographic guid ance at each of 2 biopsy markers in the lateral right breast Successful surgical excision of both biopsy markers and wires
[2022-09-11 08:45] LABS: Glucose Point of Care 125 mg/dl (65-105)
--- NOTE | 2022-09-11 08:57 | WPDHPUPDATE1 ---
History and Physical Update Update Date/Time: 09/11/22 08:57 History and Physical has been reviewed, including an updated exam of the patient. There are NO changes in the patient's condition. Risks, benefits, and alternatives have been discussed and questions answered. Patient agrees to proceed with procedure.
[2022-09-11 09:01] VITALS: BP 132/68; PULSE 73; RESP 14; TEMP 36.3; O2SAT 94
[2022-09-11] MEDS: LACTATED RINGERS 1,000 ML 30 ML IV CONT (09:06)
--- NOTE | 2022-09-11 10:31 | WPDANESEPPF ---
Anes - Initial Pre Proc Eval Procedure: Operation Date: 09/11/22 10:30 Proposed Procedures p Right Breast Ultrasound And/Or Mammogram Guided Wire Needle Localization - Vladimir Arauz MD s Excision of Ductal Carcinoma In Situ, Atypical Ductal Hyperplasia Right Breast - Vladimir Arauz MD Date/Time: 09/11/22 10:31 Surgeon: Vladimir Arauz MD Pre Op Diagnosis: dcis, adh right breast Patient Data Age: 72 Gender: F Height: 1.68 m Weight: 96.1 kg Last Vital Signs Temp 97.4 F L 09/11/22 09:01 Pulse 73 09/11/22 09:01 Resp 14 09/11/22 09:01 BP 132/68 09/11/22 09:01 Pulse Ox 94 09/11/22 09:01 O2 Del Method Room Air 09/11/22 09:01 Allergies Allergy/AdvReac Type Severity Reaction Status Date / Time No Known Allergies Allergy Verified 09/11/22 09:06 Home Medications Medication Instructions Recorded Confirmed Type lancets 30 gauge and blood glucose #200 ea 08/23/19 09/02/22 History strips combo pack (Fora [id number] strips-lancets) acetaminophen 650 mg 1,300 mg PO Q12-24H PRN Pain 09/29/19 09/02/22 History tablet,extended release (Arthritis Pain Relief (acetaminophen) ER) tamoxifen 20 mg tablet 20 mg PO DAILY 09/29/19 09/02/22 History naproxen 500 mg tablet 500 mg PO BID #180 tabs 08/16/21 09/02/22 Rx bimatoprost 0.01 % eye drops 1 drp EACH EYE QPM 10/03/21 09/02/22 History antiarthritic combination no.2 900 1,800 mg PO DAILY 04/08/22 09/02/22 History mg tablet (glucosamine-chondroitin) calcium carbonate 600 mg calcium 600 mg PO DAILY 04/08/22 09/02/22 History (1,500 mg) tablet (Calcium) cholecalciferol (vitamin D3) 125 125 mcg PO DAILY 04/08/22 09/02/22 History mcg (5,000 unit) capsule pyridoxine (vitamin B6) 100 mg 100 mg PO DAILY 04/08/22 09/02/22 History tablet oxybutynin chloride 10 mg 10 mg PO DAILY #90 tabs 06/13/22 09/02/22 Rx tablet,extended release 24 hr atorvastatin 40 mg tablet 40 mg PO QHS #90 tabs 07/23/22 09/02/22 Rx gabapentin 300 mg capsule 900 mg PO TID 08/19/22 09/11/22 History metformin 500 mg tablet,extended 1,500 mg PO QPM 08/19/22 09/02/22 History release 24 hr tramadol 50 mg tablet 50 mg PO HS PRN pain 08/19/22 09/02/22 History lisinopril 20 1 tablet PO QAM #90 tabs 09/02/22 09/02/22 Rx mg-hydrochlorothiazide 25 mg tablet Laboratory Tests 09/11/22 08:43 POC Capillary Glucose 125 mg/dl H mg/dl (65-105) Patient hx anesthesia problems: post op nausea/vomiting Family hx anesthesia problems: none Results Review: All pre-operative results and documents have been reviewed as part of the pre-operative evaluation. [facility] Past Medical History Medical History Arthritis CKD (chronic kidney disease) stage 3, GFR 30-59 ml/min Depression Diabetes DJD (degenerative joint disease) of thoracic spine Dyslipidemia Essential (primary) hypertension Female stress incontinence History of cancer Metatarsal fracture #5 - 1997 Osteoporosis Peripheral polyneuropathy Plantar fasciitis Reactive depression 1997 Type 2 diabetes mellitus with hyperglycemia, without long-term current use of insulin Unspecified osteoarthritis, unspecified site Unsteady gait Urinary Incontinence Vitamin D deficiency Surgical History Surgical History History of arthroscopic knee surgery 2000 History of biopsy right breast - DCIS - 2017 History of foot surgery left foot in the History of hip surgery right hip - Nov, 2017 History of removal of cyst left breast - 2003 History of wisdom tooth extraction Family History Family History Father Heart disease Mother Heart disease Cerebrovascular accident Sibling Heart disease Other Diabetes mellitus Family history of coronary artery disease Hypertension Social History Social History (Reviewed 09/10/22
[2022-09-11] MEDS: ceFAZolin 2 GM/D5W 50 ML 2 GM/50 ML BAG IVPB (10:50)
[2022-09-11] MEDS: BUPIVACAINE/EPINEPHRINE 0.5% 10 ML VIAL 30 ML INFILTRATE (11:16)
--- NOTE | 2022-09-11 12:13 | W.PM.PROC2 ---
Procedure Note - Detailed Date of Procedure 09/11/22 Pre-op Diagnosis dcis, adh right breast Post-op Diagnosis Same Procedure Performed Wire localization, right breast lumpectomy Surgeon Vladimir Arauz MD [employer] Liliya Rey NURSING STAFF DEVELOPMENT COORDINATOR Anesthesia General (LMA) and Local (0.5% Marcaine with epinephrine) Indications Patient was diagnosed with DCIS in the lateral right breast in 2019. She opted not to proceed with surgical treatment. She did take tamoxifen since that time. More recently, she came to the office with thoughts of going ahead with surgery. A new area of microcalcifications had been noted on recent mammogram. Stereotactic biopsy of this area showed atypical ductal hyperplasia. The area of ADH was marked with a clip and is more posterior in the lateral right breast. The DCIS was also marked with a clip in 2019 and is more superficial but still in the lateral right breast. Patient after discussion agreed to go ahead with wire localization lumpectomy of the DCIS which will attempt to also excise the area of atypical ductal hyperplasia. Both the area of ADH and DCIS were wire localized preoperatively. Findings Specimen mammogram confirmed that both of the areas that had been localized were excised with the specimen. No gross evidence of malignancy was noted. Description of Procedure The patient was seen in the preoperative holding area. Her mammograms after wire localization were reviewed. She was taken to surgery and anesthesia was introduced. The right breast was prepped and draped taking care not to disturb the localizing wire. The proposed incision which was a little right lateral circumareolar incision was marked on the skin. Local was infiltrated into the skin and the deeper subcutaneous tissues. Incision was made and dissection was carried down through a few cm of breast tissue. The incision was much more medial and superficial than the area of the exit of both wires. Once we had dissected down to what was felt to be the general vicinity of the DCIS, I then dissected more laterally and continued this dissection to the wire of the DCIS. Once found this wire was pulled through the skin and out the wound. I continued dissecting posteriorly and eventually encountered the wire of the ADH. Likewise this wire was carefully pulled through the skin and out the wound. I then used the wires and began dissecting out the breast tissue that would include all of the area of DCIS and the area between the 2 wires but also including the tissue deeper than the more posterior, ADH, wire. This was done with the cautery. Hemostasis was achieved with the cautery. I would took care to keep the 2 wires oriented as well as the orientation of the breast specimen. Some different colored suture were marked on the specimen during the dissection to ensure that the proper orientation was maintained. Eventually I excised all this breast tissue. The lumpectomy specimen was removed but the orientation was maintained. I then wrote DCIS on 1 label and ADH on a 2nd label. The two labels were placed on the appropriate wires. I then proceeded with using several different colored suture to adilson each of the sides of the lumpectomy specimen so that it would be oriented for the pathologist. With this completed, the specimen was placed on the mammography grid. Specimen mammogram confirmed the presence of both lesions. Hemostasis was achieved in the wound. I then proceeded with the margin re-excision. All 6 margins were reexcised with at least 5 if not 10 mm thickness. Each of these margin re-excision specimen had a suture placed on the inner aspect. Each was sent separately to the pathologist labeled appropriately. The wound was then inspected and meticulous hemostasis was achieved. The wound was closed in layers with deeper layer of 3-0 interrupted Monocryl suture. A more superficial layer of interrupted 3-0 Monocryl was then placed. Some subcuticular interrupted
[2022-09-11 12:25] VITALS: BP 111/37; PULSE 81; RESP 16; O2SAT 95
[2022-09-11 12:31] LABS: Glucose Point of Care 117 mg/dl (65-105)
[2022-09-11 12:55] VITALS: BP 149/79; PULSE 67; RESP 16
[2022-09-11 13:25] VITALS: BP 154/79; PULSE 65; RESP 16
[2022-09-11 13:55] VITALS: BP 159/76; PULSE 62; RESP 16
[2022-09-11] MEDS: oxyCODONE HCL (*CRX) 5 MG TAB IR PO (14:07)
== END 2022-09-11 15:00 | disposition home or self-care (01) ==
PROVIDERS: PCP Family Medicine; Visit Provider Surgery
PROC: (CPT 19301; principal; 2022-09-11 10:30)
PROC: (CPT 19301; 2022-09-11 10:30)
DX: D05.11 Intraductal carcinoma in situ of right breast (principal); N60.91 Unspecified benign mammary dysplasia of right breast; I12.9 Hypertensive chronic kidney disease with stage 1 through stage 4 chronic kidney disease, or unspecified chronic kidney disease; E11.22 Type 2 diabetes mellitus with diabetic chronic kidney disease; N18.30 Chronic kidney disease, stage 3 unspecified; E78.5 Hyperlipidemia, unspecified; M81.0 Age-related osteoporosis without current pathological fracture; E11.42 Type 2 diabetes mellitus with diabetic polyneuropathy; F32.A Depression, unspecified; E55.9 Vitamin D deficiency, unspecified; N39.3 Stress incontinence (female) (male); Z87.891 Personal history of nicotine dependence; Z79.810 Long term (current) use of selective estrogen receptor modulators (SERMs); Z79.84 Long term (current) use of oral hypoglycemic drugs; Z79.891 Long term (current) use of opiate analgesic; E66.9 Obesity, unspecified; Z68.34 Body mass index [BMI] 34.0-34.9, adult
CPT/HCPCS: 19301; 19281; 19282; 76098; 82948; 88305; 88307; 88342; 88360; 88365; A9270; C1769; J0690; J1885; J2250; J2704; J3010; J7120

== ENCOUNTER 2022-10-07 10:52 | Outpatient (CLI) | payer MEDICARE, SELFPAY ==
[2022-10-07 20:16] LABS: Alanine Aminotransferase 50 U/L (6-35); Albumin Level 4.4 g/dL (3.5-5.1); Alkaline Phosphatase 106 U/L (38-126); Anion Gap 8 mmol/L (8-16); Aspartate Amino Transferase 48 U/L (14-36); Bilirubin,Total 0.4 mg/dL (0.2-1.3); Blood Urea Nitrogen 11 mg/dL (7-17); Calcium 9.2 mg/dL (8.4-10.2); Carbon Dioxide 31 mmol/L (22-30); Chloride 97 mmol/L (98-107); Estimated Glomerular Filt Rate > 60; Glucose 125 mg/dL (65-110); Potassium 4.3 mmol/L (3.4-5.0); Sodium 136 mmol/L (137-145)
[2022-10-07 20:22] LABS: Vitamin D 25 Hydroxy 66.9 ng/mL
[2022-10-07 20:36] LABS: Hemoglobin A1C 6.5 % (<5.7)
== END 2022-10-07 10:53 | disposition home or self-care (01) ==
LOC: ANHGOSHLAB 10:54
PROVIDERS: PCP Family Medicine; Visit Provider Family Medicine
DX: E55.9 Vitamin D deficiency, unspecified (principal); E11.65 Type 2 diabetes mellitus with hyperglycemia; E78.5 Hyperlipidemia, unspecified; I10 Essential (primary) hypertension
CPT/HCPCS: 36415; 80053; 82306; 83036

== ENCOUNTER 2022-10-31 11:07 | Outpatient (CLI) | payer MEDICARE, SELFPAY ==
[2022-10-31 12:23] LABS: Basophils Absolute Auto 0.1 K/mm3 (0.0-0.1); Basophils Percent Auto 0.7 % (0.2-1.2); Eosinophils Absolute Auto 0.2 K/mm3 (0-0.3); Eosinophils Percent Auto 2.7 % (0-4.4); Hematocrit 41.4 % (37.0-47.0); Hemoglobin 13.2 g/dL (12.0-15.0); Immature Granulocyte Absolute 0.02 K/mm3 (0.00-0.031); Immature Granulocyte Percent A 0.2 % (0-0.5); Lymphocytes Absolute Auto 1.64 K/mm3 (0.9-3.2); Mean Corpuscular HGB Conc 31.9 g/dl (32-36); Mean Corpuscular Hemoglobin 29.6 pg (26-34); Mean Corpuscular Volume 92.8 fl (80-100); Mean Platelet Volume 10.1 fl (7.4-10.4); Monocytes Absolute Auto 0.7 K/mm3 (0.1-0.6); Monocytes Percent Auto 8.2 % (2.6-8.5); Neutrophils Absolute Auto 5.6 K/mm3 (1.3-6.7); Neutrophils Percent Auto 68.2 % (45.5-73.1); Platelet Count Result 360 k/mm3 (150-375); Red Blood Count 4.46 M/mm3 (4.2-5.4); White Blood Count 8.2 K/mm3 (4.5-10.0)
== END 2022-10-31 11:08 | disposition home or self-care (01) ==
LOC: ANHLAB 11:09
PROVIDERS: PCP Family Medicine; Visit Provider Surgery
DX: N61.0 Mastitis without abscess (principal)
CPT/HCPCS: 36415; 85025

== ENCOUNTER 2023-01-08 12:35 | Outpatient (CLI) | payer MEDICARE, SELFPAY ==
--- NOTE | 2023-01-08 13:13 | ECG_ITS ---
Measurements Intervals [place] Rate: 84 P: 43 AL: 188 QRS: 44 QRSD: 86 T: 31 QT: 360 QTc: 426 Interpretive Statements SINUS RHYTHM NORMAL ECG NO PREVIOUS ECG AVAILABLE FOR COMPARISON Electronically Signed On 01-10-2023 13:12:29 CDT by Tai Palomino M.D.
[2023-01-09 12:53] LABS: Partial Thromboplastin Time 32.3 SECONDS (22.3-36.8); Prothrombin Time 13.2 Seconds (11.1-14.7)
[2023-01-09 12:54] LABS: Anion Gap 8 mmol/L (8-16); Blood Urea Nitrogen 12 mg/dL (7-17); Calcium 8.9 mg/dL (8.4-10.2); Carbon Dioxide 32 mmol/L (22-30); Chloride 97 mmol/L (98-107); Estimated Glomerular Filt Rate > 60; Glucose 100 mg/dL (65-110); Potassium 3.6 mmol/L (3.4-5.0); Sodium 137 mmol/L (137-145)
== END 2023-01-08 12:36 | disposition home or self-care (01) ==
LOC: ANHSURGERY 17:11
PROVIDERS: PCP Family Medicine; Visit Provider Surgery
DX: I10 Essential (primary) hypertension (principal); Z01.818 Encounter for other preprocedural examination
CPT/HCPCS: 36415; 80048; 85610; 85730; 93005

== ENCOUNTER 2023-02-05 00:58 | Day surgery (SDC) | payer MEDICARE, SELFPAY ==
[2023-01-06 09:52] VITALS: BMI 35.6
--- NOTE | 2023-01-06 10:21 | PC.NURSE ---
Report to the Outpatient Waiting Room, entrance under the green pavilion located off [facility], at time _10:00AM on date __01/15/23 . Planned Procedure Time: __12:00PM . Time changes happen often and if your time is changed the preop area will call you the afternoon before. - You and your visitor will be asked to self-screen and do not enter if you have any COVID symptoms. - A mask is optional within the hospital at this time. Patients may have clear liquids (water, carbonated beverages, clear teas, apple juice) until 3 hours prior to surgery with a maximum of 20 ounces. - No food from midnight until time of surgery Take the following medications with a SIP of water the morning of surgery: __GABAPENTIN, PREGABALIN OR TRAMADOL NEEDED DO NOT STOP ANY OF YOUR OTHER PRESCRIPTION MEDICATIONS PRIOR TO SURGERY ?EXCEPT THE FOLLOWING Medications to discontinue per physician __HOLD ALL VITAMINS/SUPPLEMENTS 3 DAYS PRE-OP Date to take last dose____01/11/23 Please no make-up, nail upper sorbian, hairspray, perfume, deodorant, or body powder the day of surgery. No jewelry (including any body piercings) or valuables the day of surgery, leave them at home. Please take a shower or bath the night before, or the morning of, surgery with an antibacterial soap. Wear comfortable, loose fitting clothing. Children are encouraged to wear pajamas. - Jewelry must be removed prior to entering the operating room. Rings and piercings that are not removed may be cut off. - The hospital will not accept responsibility for valuables. - Please leave all valuables, including medications, at home the day of surgery. If you are going home after surgery, a licensed driver material handler must drive you home. - NO public transportation without another adult if you receive anesthesia. - We recommend that an adult stay with you for 24 hours following discharge. - We also recommend that you do not drive, make important decision, drink alcoholic beverages, or take any drugs that were not prescribed by your health care provider for at least 24 hours after your discharge time. Follow any additional instructions given to you from your surgeon. If you or anyone in your household have experienced Covid symptoms in the past week, please notify your surgeon or the nurse liaison at the phone number below for possible testing. Telephone instructions given to _PATIENT and asked if any additional questions and then verbalized understanding. Patient advised to call surgeon office or pre surgery nurse liaison [phone] if any additional questions.
--- NOTE | 2023-01-14 14:45 | WPDANESEPPF ---
Anes - Initial Pre Proc Eval Procedure: Operation Date: 01/15/23 12:00 Proposed Procedures p Right Axillary [place] Lymph Node Biopsy - Vladimir Arauz MD Date/Time: 01/14/23 14:45 Surgeon: Vladimir Arauz MD Pre Op Diagnosis: Rt Breast Ca Patient Data Age: 72 Gender: F Height: 1.65 m Weight: 97 kg Allergies Allergy/AdvReac Type Severity Reaction Status Date / Time morphine AdvReac Intermediate DISORIENTAT Verified 01/06/23 09:44 ION Home Medications Medication Instructions Recorded Confirmed Type lancets 30 gauge and blood glucose #200 ea 08/23/19 12/30/22 History strips combo pack (Fora [id number] strips-lancets) acetaminophen 650 mg 1,300 mg PO Q12-24H PRN Pain 09/29/19 01/06/23 History tablet,extended release (Arthritis Pain Relief (acetaminophen) ER) bimatoprost 0.01 % eye drops 1 drp EACH EYE QPM 10/03/21 01/06/23 History gabapentin 300 mg capsule 600 mg PO TID 08/19/22 01/06/23 History atorvastatin 40 mg tablet 40 mg PO QHS #90 tabs 09/23/22 01/06/23 Rx cholecalciferol (vitamin D3) 125 125 mcg PO .QOD 10/07/22 01/06/23 History mcg (5,000 unit) capsule tramadol 50 mg tablet 50 mg PO BID PRN pain #60 tabs 10/07/22 01/06/23 Rx ascorbic acid (vitamin C) 500 mg 500 mg PO DAILY 11/04/22 01/06/23 History capsule mecobalamin (vitamin B12) 1,000 1,000 mcg PO DAILY 11/04/22 01/06/23 History mcg chewable tablet multivitamin 1 tablet PO DAILY 11/04/22 01/06/23 History oxybutynin chloride 10 mg 10 mg PO DAILY #90 tabs 11/04/22 01/06/23 Rx tablet,extended release 24 hr turmeric root extract 500 mg tablet 500 mg PO DAILY 11/04/22 01/06/23 History pregabalin 50 mg capsule (Lyrica) 50 mg PO BID #60 caps 11/07/22 01/06/23 Rx metformin 500 mg tablet,extended 1,500 mg PO QPM #270 tabs 12/31/22 01/06/23 Rx release 24 hr losartan 50 mg-hydrochlorothiazide 1 tablet PO QAM 01/06/23 01/06/23 History 12.5 mg tablet meloxicam 15 mg tablet 15 mg PO QAM 01/06/23 01/06/23 History Results Review: All pre-operative results and documents have been reviewed as part of the pre-operative evaluation. [facility] Past Medical History Medical History (Updated 01/14/23 @ 14:46 by Oswaldo Meyers, ) Arthritis CKD (chronic kidney disease) stage 3, GFR 30-59 ml/min Depression Diabetes DJD (degenerative joint disease) of thoracic spine Dyslipidemia Essential (primary) hypertension Female stress incontinence Glaucoma History of cancer Metatarsal fracture #5 - 1997 Obstructive sleep apnea Osteoporosis Peripheral polyneuropathy Plantar fasciitis Reactive depression 1997 Type 2 diabetes mellitus with hyperglycemia, without long-term current use of insulin Unspecified osteoarthritis, unspecified site Unsteady gait Urinary Incontinence Vitamin D deficiency Surgical History Surgical History History of arthroscopic knee surgery 2000 History of biopsy right breast - DCIS - 2017 History of foot surgery left foot in the History of hip surgery right hip - Nov, 2017 History of lumpectomy of right breast 09/11/2022 - Wire localization, right breast lumpectomy History of removal of cyst left breast - 2003 History of wisdom tooth extraction Family History Family History Father Heart disease Mother Heart disease Cerebrovascular accident Sibling Heart disease Other Diabetes mellitus Family history of coronary artery disease Hypertension Social History Social History Smoking packs per day: 0.4 Smoking cigarettes per day: 8.0 Years smoked: 3 Smoking pack-years: 1.20 Smoking status: Former smoker Tobacco type: cigarettes Second hand tobacco smoke exposure: No Smoking end date: 01/26/04 Alcohol intake: former Alcohol use details: consumes 1 glass of wine occasi
--- NOTE | 2023-01-14 16:53 | PM.SD2 ---
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 She chose to hold off on surgery but was treated with tamoxifen. She decided to reconsider surgery and saw me just after Thanksgiving in 2021. Repeat breast imaging showed not only the area of DCIS which was identified with a marker clip but also a new area of concern that was more posterior in the right lateral breast. This area underwent image guided core biopsy in came back atypical ductal hyperplasia. After considerable discussion, the patient went to surgery on 09/11/2022 and underwent wire localization right breast lumpectomy which included both the area of DCIS as well as the more posterior area of ADH. Pathology showed a small area of 1 mm multifocal, ER RI positive, ductal carcinoma of the right breast. Margins were clear. Plans were made to proceed with sentinel lymph node biopsy but the patient developed some erythema of the right breast which initially seemed to result from an insect bite. There was little pain associated with an no surgical treatment was needed. The area Mansi persisted and the patient did not want to proceed with the sentinel node biopsy until this had resolved. She was seen in the office periodically and by her last office visit of 12/30/2022, the erythema was essentially gone. She was agreeable to proceeding with right axillary sentinel lymph node biopsy. She is taken to surgery at this time for that procedure. The lumpectomy has gone on to heal quite well. PMFSH Past Medical History Medical History Arthritis CKD (chronic kidney disease) stage 3, GFR 30-59 ml/min Depression Diabetes DJD (degenerative joint disease) of thoracic spine Dyslipidemia Essential (primary) hypertension Female stress incontinence Glaucoma History of cancer Metatarsal fracture #5 - 1997 Obstructive sleep apnea Osteoporosis Peripheral polyneuropathy Plantar fasciitis Reactive depression 1997 Type 2 diabetes mellitus with hyperglycemia, without long-term current use of insulin Unspecified osteoarthritis, unspecified site Unsteady gait Urinary Incontinence Vitamin D deficiency Surgical History Surgical History History of arthroscopic knee surgery 2000 History of biopsy right breast - DCIS - 2017 History of foot surgery left foot in the History of hip surgery right hip - Nov, 2017 History of lumpectomy of right breast 09/11/2022 - Wire localization, right breast lumpectomy History of removal of cyst left breast - 2003 History of wisdom tooth extraction Family History Family History Father Heart disease Mother Heart disease Cerebrovascular accident Sibling Heart disease Other Diabetes mellitus Family history of coronary artery disease Hypertension Social History Social History Smoking packs per day: 0.4 Smoking cigarettes per day: 8.0 Years smoked: 3 Smoking pack-years: 1.20 Smoking status: Former smoker Tobacco type: cigarettes Second hand tobacco smoke exposure: No Smoking end date: 01/26/04 Alcohol intake: former Alcohol use details: consumes 1 glass of wine occasionally Substance use: never Substance use type: does not use Lack of Transportation: No Lack of Food: Sometimes True Current Housing: I Have Housing Concerned About Future Housing: Decline to Answer Difficulty Paying Gas/Electric Bills: YES Difficulty Paying for Meds: YES Currently Unemployed: No Education: High School Diploma/GED Difficulty w/ Childcare or Family Care: Decline to Answer Living arrangements: with family Additional living arrangements comme
--- NOTE | 2023-01-23 10:04 | PC.NURSE ---
PATIENT RESCHEDULED R/T PERCEIVED INSURANCE PROBLEMS. NEW DATE & TIME GIVEN TO PATIENT, SHE RELAYS UNDERSTANDING. ALL PRE-OP INSTRUCTIONS REVIEWED. SHE RELAYS UNDERSTANDING. Report to the Outpatient Waiting Room, entrance under the green pavilion located off [facility], at time __11:00AM on date __02/05/23 . Planned Procedure Time: _NUCLEAR MED AT 12:00PM, PROCEDURE AT 1:00PM . Time changes happen often and if your time is changed the preop area will call you the afternoon before. - You and your visitor will be asked to self-screen and do not enter if you have any COVID symptoms. - A mask is optional within the hospital at this time. Patients may have clear liquids (water, carbonated beverages, clear teas, apple juice) until 3 hours prior to surgery with a maximum of 20 ounces. - No food from midnight until time of surgery Take the following medications with a SIP of water the morning of surgery: __GABAPENTIN, LYRICA AND TORADOL NEEDED DO NOT STOP ANY OF YOUR OTHER PRESCRIPTION MEDICATIONS PRIOR TO SURGERY ?EXCEPT THE FOLLOWING Medications to discontinue per physician ___HOLD ALL VITAMINS/SUPPLEMENTS 3 DAYS PRE-OP PER ANESTHESIA Date to take last dose____02/01/23 Please no make-up, nail khmer, hairspray, perfume, deodorant, or body powder the day of surgery. No jewelry (including any body piercings) or valuables the day of surgery, leave them at home. Please take a shower or bath the night before, or the morning of, surgery with an antibacterial soap. Wear comfortable, loose fitting clothing. Children are encouraged to wear pajamas. - Jewelry must be removed prior to entering the operating room. Rings and piercings that are not removed may be cut off. - The hospital will not accept responsibility for valuables. - Please leave all valuables, including medications, at home the day of surgery. If you are going home after surgery, a licensed driver guide must drive you home. - NO public transportation without another adult if you receive anesthesia. - We recommend that an adult stay with you for 24 hours following discharge. - We also recommend that you do not drive, make important decision, drink alcoholic beverages, or take any drugs that were not prescribed by your health care provider for at least 24 hours after your discharge time. Follow any additional instructions given to you from your surgeon. If you or anyone in your household have experienced Covid symptoms in the past week, please notify your surgeon or the nurse liaison at the phone number below for possible testing. Telephone instructions given to __PATIENT and asked if any additional questions and then verbalized understanding. Patient advised to call surgeon office or pre surgery nurse liaison [phone] if any additional questions.
[2023-02-05] VITALS (16 sets, daily range): BP systolic 147–189; BP diastolic 74–104; PULSE 79–93; RESP 12–20; TEMP 36.4–36.8; O2SAT 93–100
--- NOTE | ~2023-02-05 | NM_ITS ---
NM sentinel node inject only DATE: 02/05/2023 16:01 INDICATION: Right breast cancer TECHNIQUE: Cumulative 1.1 mCi 99m technetium lymphoseek was injected in 4 equal doses subdermally in the periareolar area at 12:00, 3:00, 6:00 and 9:00. The patient tolerated the procedure well, without apparent complication. IMPRESSION: Preoperative periareolar subdermal 1.1 mCi 99m technetium lymphoseek injections for sent inel node detection Reviewed, dictated and finalized at [facility]. Reviewed, dictated and finalized at [facility]. IMPRESSION: Preoperative periareolar subdermal 1.1 mCi 99m technetium lymphose ek injections for sentinel node detection
[2023-02-05] MEDS: LACTATED RINGERS 1,000 ML 30 ML IV CONT ×2 (11:30→15:31)
--- NOTE | 2023-02-05 11:34 | WPDHPUPDATE1 ---
History and Physical Update Update Date/Time: 02/05/23 11:34 History and Physical has been reviewed, including an updated exam of the patient. There are NO changes in the patient's condition. Risks, benefits, and alternatives have been discussed and questions answered. Patient agrees to proceed with procedure.
--- NOTE | 2023-02-05 11:59 | WPDANESEPPF ---
Anes - Initial Pre Proc Eval Procedure: Operation Date: 02/05/23 13:00 Proposed Procedures p Right Axillary [place] Lymph Node Biopsy - Vladimir Arauz MD Date/Time: 02/05/23 12:00 Surgeon: Vladimir Arauz MD Pre Op Diagnosis: Rt Breast Ca Patient Data Age: 72 Gender: F Height: 1.65 m Weight: 97 kg Allergies Allergy/AdvReac Type Severity Reaction Status Date / Time morphine AdvReac Intermediate DISORIENTAT Verified 02/05/23 11:43 ION Home Medications Medication Instructions Recorded Confirmed Type lancets 30 gauge and blood glucose #200 ea 08/23/19 02/05/23 History strips combo pack (Fora [id number] strips-lancets) acetaminophen 650 mg 1,300 mg PO Q12-24H PRN Pain 09/29/19 02/05/23 History tablet,extended release (Arthritis Pain Relief (acetaminophen) ER) bimatoprost 0.01 % eye drops 1 drp EACH EYE QPM 10/03/21 02/05/23 History gabapentin 300 mg capsule 600 mg PO TID 08/19/22 02/05/23 History atorvastatin 40 mg tablet 40 mg PO QHS #90 tabs 09/23/22 02/05/23 Rx cholecalciferol (vitamin D3) 125 125 mcg PO .QOD 10/07/22 02/05/23 History mcg (5,000 unit) capsule tramadol 50 mg tablet 50 mg PO BID PRN pain #60 tabs 10/07/22 02/05/23 Rx ascorbic acid (vitamin C) 500 mg 500 mg PO DAILY 11/04/22 02/05/23 History capsule mecobalamin (vitamin B12) 1,000 1,000 mcg PO DAILY 11/04/22 02/05/23 History mcg chewable tablet multivitamin 1 tablet PO DAILY 11/04/22 02/05/23 History turmeric root extract 500 mg tablet 500 mg PO DAILY 11/04/22 02/05/23 History pregabalin 50 mg capsule (Lyrica) 50 mg PO BID #60 caps 11/07/22 02/05/23 Rx metformin 500 mg tablet,extended 1,500 mg PO QPM #270 tabs 12/31/22 02/05/23 Rx release 24 hr losartan 50 mg-hydrochlorothiazide 1 tablet PO QAM 01/06/23 02/05/23 History 12.5 mg tablet meloxicam 15 mg tablet 15 mg PO QAM 01/06/23 02/05/23 History oxybutynin chloride 10 mg 10 mg PO DAILY #90 tabs 02/03/23 02/05/23 Rx tablet,extended release 24 hr Patient hx anesthesia problems: none Family hx anesthesia problems: none Results Review: All pre-operative results and documents have been reviewed as part of the pre-operative evaluation. [facility] Past Medical History Medical History Arthritis CKD (chronic kidney disease) stage 3, GFR 30-59 ml/min Depression Diabetes DJD (degenerative joint disease) of thoracic spine Dyslipidemia Essential (primary) hypertension Female stress incontinence Glaucoma History of cancer Metatarsal fracture #5 - 1997 Obstructive sleep apnea Osteoporosis Peripheral polyneuropathy Plantar fasciitis Reactive depression 1997 Type 2 diabetes mellitus with hyperglycemia, without long-term current use of insulin Unspecified osteoarthritis, unspecified site Unsteady gait Urinary Incontinence Vitamin D deficiency Surgical History Surgical History History of arthroscopic knee surgery 2000 History of biopsy right breast - DCIS - 2017 History of foot surgery left foot in the History of hip surgery right hip - Nov, 2017 History of lumpectomy of right breast 09/11/2022 - Wire localization, right breast lumpectomy History of removal of cyst left breast - 2003 History of wisdom tooth extraction Family History Family History Father Heart disease Mother Heart disease Cerebrovascular accident Sibling Heart disease Other Diabetes mellitus Family history of coronary artery disease Hypertension Social History Social History Smoking packs per day: 0.4 Smoking cigarettes per day: 8.0 Years smoked: 3 Smoking pack-years: 1.20 Smoking status: Former smoker Tobacco type: cigarettes Second hand tobacco smoke exposure: No Smoking end date: 01/26/04 Alcohol intake: form
[2023-02-05 12:05] LABS: Glucose Point of Care 110 mg/dl (65-105)
[2023-02-05] MEDS: ceFAZolin 2 GM/D5W 50 ML 2 GM/50 ML BAG IVPB (13:16)
[2023-02-05] MEDS: ISOSULFAN BLUE 1% INJ 5 ML VIAL SUB-Q (13:47)
[2023-02-05] MEDS: fentaNYL CITRATE INJ (*CRX) 100 MCG/2 ML VIAL 25 MCG IV PUSH ×6 (15:49→16:33)
[2023-02-05 15:51] LABS: Glucose Point of Care 177 mg/dl (65-105)
--- NOTE | 2023-02-05 15:52 | W.PM.PROC2 ---
Procedure Note - Detailed Date of Procedure 02/05/23 Pre-op Diagnosis Rt Breast Ca Post-op Diagnosis Same Procedure Performed Attempted right axillary sentinel lymph node biopsy, right axillary dissection Surgeon Vladimir Arauz MD Boat Outfitter Liliya CURRAN, Ellie CURRAN Anesthesia General and Local (0.25% Marcaine with epinephrine) Indications Patient is a 72-year-old woman with history of DCIS of the right breast diagnosed in 2019. She opted not to have surgery at that time and instead took tamoxifen. After a couple of years, she reconsidered and some in the office. She had repeat imaging. Another suspicious area was noted in the right breast. Image guided biopsy of this showed atypical ductal hyperplasia. She was taken to surgery for lumpectomy to include removal of the area of ADH. The lumpectomy was performed successfully with clear margins. However, the ductal carcinoma in Situ had advanced on to invasive carcinoma. Patient has had some cellulitis or mastitis of the right breast possibly from an insect bite and waited a while before agreeing to proceed with sentinel lymph node biopsy. She is taken to surgery now for right axillary sentinel lymph node biopsy. Findings Unfortunately, neither the radio isotope nor the Lymphazurin blue dye migrated into the axilla presumably due to lymphatic disruption from the previous lumpectomy. Right axillary dissection was then performed. No particularly suspicious lymph nodes were noted. Description of Procedure Patient was taken to surgery and induced into general anesthesia. She had previously had radioisotope injection in the department of radiology. The right breast axilla and right arm were prepped and draped such that the arm was mobile and in the field. Lymphazurin blue dye was injected under the right nipple and gentle breast massage was carried out. While the blue dye did seem to traverse some of the lymphatics, there was no lymphatic vessels beyond the pectoralis lateral border. I also used the Navigator and tried to detect radio isotope emission consistent with the sentinel node in the right axilla. None was noted. I then julian a hairline incision in the right axilla. Local was infiltrated into the skin and the deeper subcutaneous tissues. Incision was made and deepened through the subcutaneous. I again looked for any sign of dye stained lymphatics or radio isotope emission. There were none. We dissected down through the subcutaneous into the axilla. Again I checked with the navigator and there was no radio isotope admission suggestive of isotope transmission into the axilla. No evidence of blue dye progressing into the axilla was seen either. We then abandoned the sentinel lymph node biopsy. I started the right axillary dissection by identifying the anterior border of latissimus Cobian muscle and following that up to its tendon. I then dissected lateral to the pectoralis major and also dissected lateral to the pectoralis minor and dissected nodes from beneath the pectoralis minor. We used blunt and sharp dissection as well as many clips and dissected this axillary tissue over to the area of the axillary vein. I stayed at least a cm or 2 below the axillary vein and then swept the axillary tissue posteriorly to the subscapularis muscle. [place] medially the dissection was continued on down the lateral chest wall. The long thoracic nerve was identified and carefully avoided. I will then went back to the area of the axillary vein and dissected the axillary tissue posterior and caudally. The thoracodorsal nerve was identified as was the thoracodorsal artery and vein. I dissected the axillary tissue off of the nerve. I divided the artery and vein with clips. We then continued the dissection of the axillary contents proceeding caudally and eventually freeing it from the subscapularis muscle and eventually from the lower portion of the latissimus Cobian. The axillary contents wer
[2023-02-05] MEDS: hydrALAZINE HCL 20 MG/ML VIAL 10 MG IV PUSH (16:25)
[2023-02-05] MEDS: oxyCODONE HCL (*CRX) 5 MG TAB IR PO (17:16)
--- NOTE | 2023-02-05 18:28 | SUR.PHASEII ---
[address] serrano with updated
--- NOTE | 2023-02-05 18:28 | SUR.PHASEII ---
[address] serrano of patient condition and her wanting to stay the night. he is ok with 24hr observation, orders given by dr serrano.
--- NOTE | 2023-02-05 18:43 | SUR.PHASEII ---
1840 spouse was offered help out to paking lot to get car in surgery parking lot to bring around to the front of hospital. he refused and stated he would get a ride
--- NOTE | 2023-02-05 18:43 | ADMGEN ---
This patient, Paty Vaughn, was admitted to Medical Room 243-01. Patient/family oriented to hospital policies and general routines including ID bracelet, bed and alarms, visiting hours, pain management, procedures, bathroom and other care routines, personal items, smoking policy, room service/diet, and visiting hours. Information on how to activate the Rapid Response Team has been discussed. Patient/Family are encouraged to report perceived risks to care and to ask questions if they do not understand what they are told or what they should do.
--- NOTE | 2023-02-05 19:58 | PC.NURSE ---
Addendum entered by Shante Escobedo RN 02/05/23 20:00: 1953 Dr. Gage called back. Provider said to straight cath pt now and have pt try walking to the bathroom next time she feels like going. If in 6-8 hrs pt has not gone again bladder scan and call again. Original Note: Called exchange for Dr. Arauz around 1949. Pt has been on the bedpan twice and was unable to go. Bladder scanned pt and had 1141 cc in bladder. Exchange said would be called back by Dr. Gage.
[2023-02-05 21:04] LABS: Glucose Point of Care 198 mg/dl (65-105)
[2023-02-05] MEDS: PREGABALIN (*CRX) 50 MG CAPSULE PO (22:29)
[2023-02-05] MEDS: traMADol HCL (*CRX) 50 MG TABLET PO (22:29)
[2023-02-05] MEDS: ATORVASTATIN 40 MG TABLET PO (22:30)
[2023-02-05] MEDS: SODIUM CHLORIDE 0.9% IV 1,000 ML 80 ML IV CONT (22:31)
--- NOTE | 2023-02-05 23:39 | PC.NURSE ---
[address] Arauz for pain med clarification. Meds had duplicate or no pain scales. Dr. Gage called back around 2029 and said to put/change orders to: DC fentanyl, Tylenol 1000 mg Q6H for pain 1-3, Tramadol 50 mg Q6H for pain 4-6, and Percocet 5 mg Q4H for pain 7-10. Per provider, if pt later needs something for breakthrough pain can call back.
[2023-02-06 00:21] VITALS: BP 151/85; PULSE 98; RESP 17; TEMP 37.1; O2SAT 95
[2023-02-06 04:15] VITALS: BP 135/71; PULSE 88; RESP 17; TEMP 36.9; O2SAT 96
--- NOTE | 2023-02-06 06:56 | PM.DS ---
DS: Admitting Diagnosis Discharge Date 02/06/2023 Admitting Diagnosis Right breast cancer DS: Discharge Diagnosis Discharge Diagnosis (1) Breast cancer, right: Qualifiers: Breast location: lower outer quadrant of breast Estrogen receptor status: unspecified Patient sex: female Qualified Code(s): C50.511 - Malignant neoplasm of lower-outer quadrant of right female breast Code(s): C50.911 - Malignant neoplasm of unspecified site of right female breast Status: Chronic DS: Summary Hospital Course Hospital Course: Patient underwent attempted right axillary sentinel lymph node biopsy. Due to her previous lumpectomy, the radio isotope as well as the Lymphazurin blue dye did not migrate to the sentinel lymph nodes. She underwent right axillary lymph node dissection. Postoperatively she was having considerable discomfort and was very slow to wake up. She walks with a cane and is not particularly mobile as a baseline. She was observed overnight and was feeling better the morning after surgery. She was comfortable and able to be discharged taking oral intake well and only oral analgesics. Time Spent with Patient Time attestation: Total time spent providing and/or coordinating discharge services: Time spent: Less than 30 minutes DS: Data Data Completed and Pending Pending studies at discharge: Pending at discharge 02/05/23 13:54 Surgical [PTH] Routine 02/05/23 14:57 Surgical [PTH] Routine Labs on day of discharge: Labs from last 24 hours 02/05/23 02/05/23 02/05/23 20:09 15:45 12:00 POC Capillary Glucose 198 H 177 H 110 H Discharge Plan Discharge Patient Disposition: Home, Self-Care Discharge Instructions: Discharge Instruction Sheet for Mack Node Biopsy (Possible Axillary Node Dissection) Patients Dr. Arauz, Dr. Becker, Dr. [facility] [address] [address] [address] [place] [address] 1.) Keep wound clean and dry. If drains are present, will need to sponge bathe until drain(s) are removed. This drain will be removed during your follow up visit. 2.) No vigorous activity or carrying with affected arm. Ok to use right arm sling prn today and tomorrow. May remove the sling and leave it off on 02/08/2023. Once the sling is off, may use right arm to comb hair, eat, write, etc. 3.) Do not apply creams or ointments to the incision.. 4.) Ambulate (walk) for exercise at least 3 times per day. 5.) Contact your surgeon?s office if you have excessive and persistent pain, swelling, bleeding, or drainage through the dressing, redness or red streaks around the wound, heat or warmth at the site of the incision, or fever of more than 101 degrees. 6.) Resume all home medications. Patient to be given pain medication prescription prior to discharge if needed. 7.) Please be aware that the surgeon will likely inject a ?blue dye? to identify the sentinel lymph node during the procedure. This dye may turn your urine blue or green for 24 hours and skin a blue color that will fade over a period of time (several weeks). This is expected and of no concern. 8.) Please allow 5 business days for biopsy results. Dr. Arauz/Dr. Becker?s office will call with results. 9.) Nutrition: Start out by drinking fluids and increase your diet as tolerated. If you experience nausea, try dry toast and crackers and 7-UP. If nausea or vomiting persists, contact your surgeon?s office. 10.) No alcohol while taking your narcotic pain medication. No driving for 24 hours or if you are taking your narcotic pain medication. 11.) Keep the grenade compressed on the LUCINDA drain. This provides suction and is essential for the drain to work properly. 12.) Empty the drain a couple of times a day and record the drain output in mL. A syringe marked in mL is very helpful in doing this. Keep a daily, 24 hour, record of the drain ou
[2023-02-06 08:09] LABS: Glucose Point of Care 127 mg/dl (65-105)
[2023-02-06 08:22] VITALS: BP 142/73; PULSE 86; RESP 18; TEMP 36.8; O2SAT 96
[2023-02-06] MEDS: GABAPENTIN 300 MG CAPSULE 600 MG PO ×2 (08:45→12:26)
[2023-02-06] MEDS: hydroCHLOROthiazide 12.5 MG CAPSULE PO (08:45)
[2023-02-06] MEDS: LOSARTAN POTASSIUM 50 MG TABLET PO (08:45)
[2023-02-06 08:49] VITALS: RESP 18; O2SAT 96
[2023-02-06] MEDS: PREGABALIN (*CRX) 50 MG CAPSULE PO (08:49)
[2023-02-06] MEDS: traMADol HCL (*CRX) 50 MG TABLET PO (08:49)
[2023-02-06 12:05] LABS: Glucose Point of Care 121 mg/dl (65-105)
== END 2023-02-06 13:10 | disposition home or self-care (01) ==
LOC: ANHSURGERY 10:48 → ANH2MED 18:42
PROVIDERS: PCP Family Medicine; Visit Provider Surgery
PROC: (CPT 38525; principal; 2023-02-05 13:00)
DX: C50.511 Malignant neoplasm of lower-outer quadrant of right female breast (principal); G89.18 Other acute postprocedural pain; I12.9 Hypertensive chronic kidney disease with stage 1 through stage 4 chronic kidney disease, or unspecified chronic kidney disease; E11.22 Type 2 diabetes mellitus with diabetic chronic kidney disease; N18.30 Chronic kidney disease, stage 3 unspecified; E11.42 Type 2 diabetes mellitus with diabetic polyneuropathy; E78.5 Hyperlipidemia, unspecified; H40.9 Unspecified glaucoma; G47.33 Obstructive sleep apnea (adult) (pediatric); M81.0 Age-related osteoporosis without current pathological fracture; E55.9 Vitamin D deficiency, unspecified; N39.3 Stress incontinence (female) (male); Z87.891 Personal history of nicotine dependence; E66.9 Obesity, unspecified; Z68.34 Body mass index [BMI] 34.0-34.9, adult; Z79.810 Long term (current) use of selective estrogen receptor modulators (SERMs)
CPT/HCPCS: 38745; 36415; 38792; 80048; 82948; 85610; 85730; 88305; 93005; A9270; A9520; C1713; J0360; J0690; J1100; J2405; J2704; J3010; J7030; J7120

== ENCOUNTER 2023-03-08 09:05 | Outpatient (CLI) | payer MEDICARE, SELFPAY ==
[2023-03-08 10:12] LABS: INR 0.9; Prothrombin Time 12.8 Seconds (11.1-14.7)
[2023-03-08 10:14] LABS: Anion Gap 8 mmol/L (8-16); Blood Urea Nitrogen 15 mg/dL (7-17); Calcium 8.7 mg/dL (8.4-10.2); Carbon Dioxide 27 mmol/L (22-30); Chloride 100 mmol/L (98-107); Estimated Glomerular Filt Rate > 60; Glucose 105 mg/dL (65-110); Potassium 3.9 mmol/L (3.4-5.0); Sodium 135 mmol/L (137-145)
== END 2023-03-08 09:06 | disposition home or self-care (01) ==
PROVIDERS: PCP Family Medicine; Visit Provider Anesthesiology
DX: Z01.812 Encounter for preprocedural laboratory examination (principal); E11.65 Type 2 diabetes mellitus with hyperglycemia; N18.30 Chronic kidney disease, stage 3 unspecified
CPT/HCPCS: 36415; 80048; 85610

== ENCOUNTER 2023-04-17 08:12 | Outpatient (CLI) | payer MEDICARE, SELFPAY ==
[2023-04-17 10:04] LABS: Basophils Absolute Auto 0.1 K/mm3 (0.0-0.1); Basophils Percent Auto 0.7 % (0.2-1.2); Eosinophils Absolute Auto 0.2 K/mm3 (0-0.3); Eosinophils Percent Auto 2.6 % (0-4.4); Hematocrit 40.1 % (37.0-47.0); Immature Granulocyte Absolute 0.02 K/mm3 (0.00-0.031); Immature Granulocyte Percent A 0.2 % (0-0.5); Lymphocytes Absolute Auto 1.88 K/mm3 (0.9-3.2); Lymphocytes Percent Auto 21.3 % (18.3-44.2); Mean Corpuscular HGB Conc 32.4 g/dl (32-36); Mean Corpuscular Hemoglobin 28.2 pg (26-34); Mean Platelet Volume 9.7 fl (7.4-10.4); Monocytes Absolute Auto 0.5 K/mm3 (0.1-0.6); Monocytes Percent Auto 6.1 % (2.6-8.5); Neutrophils Absolute Auto 6.1 K/mm3 (1.3-6.7); Neutrophils Percent Auto 69.1 % (45.5-73.1); Platelet Count Result 403 k/mm3 (150-375); Red Blood Count 4.61 M/mm3 (4.2-5.4); Red Cell Distribution Width 14.3 % (11.5-14.5); White Blood Count 8.8 K/mm3 (4.5-10.0)
[2023-04-17 10:17] LABS: Alanine Aminotransferase 24 U/L (6-35); Albumin Level 4.4 g/dL (3.5-5.1); Alkaline Phosphatase 101 U/L (38-126); Anion Gap 8 mmol/L (8-16); Aspartate Amino Transferase 29 U/L (14-36); Bilirubin,Total 0.5 mg/dL (0.2-1.3); Blood Urea Nitrogen 11 mg/dL (7-17); Calcium 9.5 mg/dL (8.4-10.2); Carbon Dioxide 30 mmol/L (22-30); Chloride 97 mmol/L (98-107); Cholesterol 249 mg/dL (0-200); Estimated Glomerular Filt Rate > 60; Glucose 113 mg/dL (65-110); HDL Direct 40 mg/dL; Potassium 3.8 mmol/L (3.4-5.0); Sodium 135 mmol/L (137-145); Triglycerides 185 mg/dL (<150)
[2023-04-17 10:18] LABS: Hemoglobin A1C 6.3 % (<5.7)
[2023-04-17 10:28] LABS: LDL Cholesterol Direct 146 mg/dL
[2023-04-17 10:29] LABS: Rheumatoid Factor < 12.0 IU/ML (<12)
[2023-04-17 10:34] LABS: Vitamin D 25 Hydroxy 53.8 ng/mL
[2023-04-17 11:20] LABS: Vitamin B12 > 1000.0 pg/mL (239-931)
[2023-04-17 12:45] LABS: Erythrocyte Sedimentation Rate 15 mm/hr (0-20)
[2023-04-21 21:28] LABS: Anti Cyclic Citrullinated Pept <16 Units (<20)
== END 2023-04-17 08:13 | disposition home or self-care (01) ==
LOC: ANHLAB 08:13
PROVIDERS: PCP Family Medicine; Visit Provider Family Medicine
DX: E11.9 Type 2 diabetes mellitus without complications (principal); M25.50 Pain in unspecified joint; E55.9 Vitamin D deficiency, unspecified; G89.29 Other chronic pain; I10 Essential (primary) hypertension; M79.2 Neuralgia and neuritis, unspecified; E53.8 Deficiency of other specified B group vitamins; E78.5 Hyperlipidemia, unspecified
CPT/HCPCS: 36415; 80053; 80061; 82306; 82607; 83036; 84443; 85025; 85652; 86038; 86039; 86200; 86430

== ENCOUNTER 2023-04-29 11:31 | Outpatient (CLI) | payer MEDICARE, SELFPAY ==
--- NOTE | ~2023-04-29 | US_ITS ---
EXAMINATION: US breast RT limited HISTORY: Palpable mass in the upper outer quadrant of the right breast. Patient status post right kehinde ast lumpectomy in August 2022 TECHNIQUE: Limited right breast ultrasound performed. FINDINGS: There is an approximately 9.3 x 5.8 x 8.1 cm fluid collection with thin internal septations in the upper outer quadrant of the right breast. No suspicious mass is identified. IMPRESSION: Probable large postoperative seroma of the right breast corresponding to the palpable abnormality of concern. Continued clinical follow-up is recommended with repeat imaging as clinically indicated. Of note, patient is also due for screening mammography. BI-RADS Category 2: Benign finding(s). Reviewed, dictated and finalized at location [facility]. IMPRESSION: Probable large postoperative seroma of the right breast corresponding to the pa lpable abnormality of concern. Continued clinical follow-up is recommended with repeat imaging as clinically indicated. Of note, patient is also due for scree abelino mammography. BI-RADS Category 2: Benign finding(s).
== END 2023-04-29 11:32 | disposition home or self-care (01) ==
PROVIDERS: PCP Family Medicine; Visit Provider Surgery
DX: N64.89 Other specified disorders of breast (principal)
CPT/HCPCS: 76642

== ENCOUNTER 2023-06-27 08:09 | Outpatient (CLI) | payer MEDICARE, SELFPAY ==
--- NOTE | ~2023-06-27 | US_ITS ---
US breast RT complete DATE: 06/27/2023 09:12 INDICATION: Follow-up of probable large postoperative seroma of right breast TECHNIQUE: Real-time and color flow imaging of complete right breast COMPARISON: 04/29/2023 limited right breast ultrasound FINDINGS: There is a mildly septated complicated cyst with through transmission posterior enhancement in the lower outer quadrant of the right breast. This currently measures 6.6 x 6.9 x 6.8 mm compared to 9.3 x 5.8 x 8.1 cm dimension on 04/29/2023. No suspicious mass or shadowing of the right breast is detected. IMPRESSION: Interval diminished size of benign-appearing mildly complicated cyst of lower outer quadr ant of right breast since 05/16/2023 Reviewed, dictated and finalized at [facility]. Reviewed, dictated and finalized at location [facility]. UITING ASSISTANT IMPRESSION: Interval diminished size of benign-appearing mildly complicated cys t of lower outer quadrant of right breast since 05/16/2023
== END 2023-06-27 08:10 | disposition home or self-care (01) ==
PROVIDERS: PCP Family Medicine; Visit Provider Surgery
DX: N64.89 Other specified disorders of breast (principal)
CPT/HCPCS: 76641

== ENCOUNTER 2023-10-20 09:07 | Outpatient (CLI) | payer MEDICARE, SELFPAY ==
--- NOTE | ~2023-10-20 | MM_ITS ---
EXAMINATION: MM screening aster BI w liliya HISTORY: Screening mammogram TECHNIQUE: Craniocaudal and mediolateral oblique 3-D tomosynthesis images were obtained and synthetic 2-D images were generated. CAD analysis was submitted and interpreted. COMPARISON: 04/11/2022 diagnostic bilateral mammogram and limited right breast ultrasound 10/01/2021 bilateral diagnostic mammogram 01/01/2021 diagnostic right mammogram and limited right breast ultrasound 02/08/2020 diagnostic right mammogram BREAST PARENCHYMAL COMPOSITION: There are scattered areas of fibroglandular density. FINDINGS: There is diffuse skin thickening of the right breast and interval accentuation of fibroglan dular stroma. Approximately 3.5 x 6 cm irregular opacity is noted posteriorly in the mid to upper outer right breas t in the region of the previously reported biopsy marker and microcalcifications. This large irregula r mass density may be due to postoperative seroma or hematoma. Differential diagnosis includes less l ikely a malignant mass. The skin thickening and accentuated fibroglandular stroma may be due to post radiation changes, lymphatic obstruction or invasion. Diagnostic right mammogram and right breast ult rasound examination are recommended. No suspicious mass, architectural distortion, malignant calcification, skin thickening of the left br east. Plate IMPRESSION: 1. Irregular approximately 3.5 x 6 cm mass density in the mid to upper posterior outer right breast, likely postoperative seroma or hematoma. Malignant mass is not excluded. Skin thickening and accentuated fibroglandular stroma throughout breast, possibly due to postoperativ e radiation change. Lymphatic obstruction or invasion is not excluded. 2. Diagnostic right mammogram and right breast ultrasound examination are recommended BI-RADS Category 0: Incomplete: Needs additional imaging evaluation. Reviewed, dictated and finalized at location A. IMPRESSION: 1. Irregular approximately 3.5 x 6 cm mass density in the mid to upper posterio r outer right breast, likely postoperative seroma or hematoma. Malignant mass i s not excluded. Skin thickening and accentuated fibroglandular stroma throughout breast, possib ly due to postoperative radiation change. Lymphatic obstruction or invasion is not excluded. 2. Diagnostic right mammogram and right breast ultrasound examination are recom mended BI-RADS Category 0: Incomplete: Needs additional imaging evaluation.
== END 2023-10-20 09:08 ==
PROVIDERS: PCP Surgery; Visit Provider Surgery
DX: Z12.31 Encounter for screening mammogram for malignant neoplasm of breast (principal); R92.8 Other abnormal and inconclusive findings on diagnostic imaging of breast
CPT/HCPCS: 77063; 77067

== ENCOUNTER 2023-11-07 09:14 | Outpatient (CLI) | payer MEDICARE, SELFPAY ==
[2023-11-07 10:24] LABS: Hemoglobin A1C 6.5 % (<5.7)
[2023-11-07 10:27] LABS: Alanine Aminotransferase 22 U/L (6-35); Albumin Level 4.6 g/dL (3.5-5.1); Alkaline Phosphatase 102 U/L (38-126); Anion Gap 10 mmol/L (4-12); Aspartate Amino Transferase 29 U/L (14-36); Bilirubin,Total 0.5 mg/dL (0.2-1.3); Blood Urea Nitrogen 14 mg/dL (7-17); Calcium 9.6 mg/dL (8.4-10.2); Carbon Dioxide 28 mmol/L (22-30); Chloride 99 mmol/L (98-107); Cholesterol 203 mg/dL (0-200); Estimated Glomerular Filt Rate > 60; Glucose 114 mg/dL (65-110); HDL Direct 40 mg/dL; Sodium 137 mmol/L (137-145); Triglycerides 200 mg/dL (<150)
[2023-11-07 10:39] LABS: LDL Cholesterol Direct 127 mg/dL
== END 2023-11-07 09:15 | disposition home or self-care (01) ==
LOC: ANHLAB 09:16
PROVIDERS: PCP Family Medicine; Visit Provider Family Medicine
DX: E78.5 Hyperlipidemia, unspecified (principal); E11.9 Type 2 diabetes mellitus without complications; I10 Essential (primary) hypertension
CPT/HCPCS: 36415; 80053; 80061; 83036

== ENCOUNTER 2023-11-21 13:54 | Outpatient (CLI) | payer MEDICARE, SELFPAY ==
--- NOTE | ~2023-11-21 | MMUS_ITS ---
EXAMINATION: MM diagnostic aster RT w liliya, US breast RT complete HISTORY: Irregular approximately 3.5 x 6 cm mass density in the mid to upper posterior outer right br east reported on 10/20/2023 screening mammogram TECHNIQUE: Additional 3-D tomosynthesis images of the right breast were performed and synthetic 2-D i mages were generated. CAD analysis was submitted and interpreted. High resolution complete right rom st ultrasound examination including all four quadrants and subareolar area was performed. COMPARISON: 10/20/2023 bilateral screening mammogram BREAST PARENCHYMAL COMPOSITION: There are scattered areas of fibroglandular density. FINDINGS: MAMMOGRAPHIC FINDINGS: There is prominent skin thickening of the right breast, which may be due to post-radiation therapy or lymphatic obstruction. There is diminished density in the posterior mid to outer right breast and anterior central breast wi th spot compression compared to 10/20/2023 routine screening views. ULTRASOUND: 9:00 7 cm from nipple: There is an irregular complex mixed hypoechoic and sonolucent area with poste rior enhancement consistent with through transmission. The sonolucent area measures approximately 3. 8 x 2.7 x 3.9 cm. Considering the posterior enhancement, this is most likely postoperative hematoma and/or seroma; differential diagnosis includes necrotic neoplasm. 10:00 10 cm from nipple: There is a complex mixed sonolucent and hypoechoic irregular area measuring approximately 1.3 x 3.4 x 4 cm, with through transmission, no posterior shadowing, likely postoperat edenilson hematoma and/or seroma; differential diagnosis includes necrotic neoplasm. IMPRESSION: 1. Two complex mixed hypoechoic and sonolucent areas, at 9:00 7 cm from nipple and 10:00 10 cm from n ipple; differential diagnosis includes postoperative seroma and/or hematoma; necrotic neoplasm is not excluded Skin thickening may be due to post-radiation change versus lymphedema due to lymphatic obstruction or invasion. 2. Consider breast MRI and/or follow up mammographic and ultrasound imaging in 6 months. BI-RADS Category 0: Incomplete: Needs additional imaging evaluation. Consider breast MRI. Reviewed, dictated and finalized at location A. IMPRESSION: 1. Two complex mixed hypoechoic and sonolucent areas, at 9:00 7 cm from nipple and 10:00 10 cm from nipple; differential diagnosis includes postoperative sero ma and/or hematoma; necrotic neoplasm is not excluded Skin thickening may be due to post-radiation change versus lymphedema due to ly mphatic obstruction or invasion. 2. Consider breast MRI and/or follow up mammographic and ultrasound imaging in 6 months. BI-RADS Category 0: Incomplete: Needs additional imaging evaluation. Consider breast MRI.
== END 2023-11-21 13:55 ==
LOC: MICIMG 13:55
PROVIDERS: PCP Surgery; Visit Provider Surgery
DX: R92.8 Other abnormal and inconclusive findings on diagnostic imaging of breast (principal)
CPT/HCPCS: 76641; 77061; 77065; G0279

== ENCOUNTER 2024-01-15 14:30 | Outpatient (CLI) | payer MEDICARE, SELFPAY ==
--- NOTE | ~2024-01-15 | XR_ITS ---
EXAMINATION: XR knee LT 3V, XR knee RT 3V DATE: 01/15/2024 14:43 INDICATION: Bilateral knee pain TECHNIQUE: 1. Weight bearing anteroposterior, and lateral and sunrise views of the left knee were obtained. 2. Weight bearing anteroposterior, and lateral and sunrise views of the right knee were obtained. COMPARISON: None. FINDINGS: No fracture. Relatively symmetric tricompartmental osteoarthritis of both knees, advanced in the late ral compartments with remodeling of the lateral tibial plateaus. This results in 22 degrees valgus an gulation on the right and 19 degrees on the left. Moderate size marginal osteophytes in the bilateral medial and patellofemoral compartments with moderate joint space narrowing at the patellofemoral com partments. Small bilateral knee joint effusions. IMPRESSION: 1. Bilateral genu valgus resulting from an asymmetric tricompartmental osteoarthritis, advanced in th e lateral compartments. Reviewed, dictated and finalized at location A. IMPRESSION: 1. Bilateral genu valgus resulting from an asymmetric tricompartmental osteoart hritis, advanced in the lateral compartments.
== END 2024-01-15 14:31 ==
LOC: GOSHIMG 14:32
PROVIDERS: PCP Family Medicine; Visit Provider Nurse Practitioner Family
DX: M17.0 Bilateral primary osteoarthritis of knee (principal)
CPT/HCPCS: 73562

== ENCOUNTER 2024-01-27 08:50 | Outpatient (CLI) | payer MEDICARE, SELFPAY ==
--- NOTE | ~2024-01-27 | XR_ITS ---
Right Knee Technique: AP and lateral views were obtained. Clinical History: Pain Findings: No fracture or dislocation is seen. There is moderate degenerative change of the lateral co mpartment, and mild degenerative change of the medial and patellofemoral compartment.. Soft tissues a re unremarkable. No joint effusion is seen. Impression: Tricompartmental osteoarthritis, as detailed above, worst in the lateral compartment. Reviewed, dictated and finalized at location . Impression: Tricompartmental osteoarthritis, as detailed above, worst in the lateral compar tment.
--- NOTE | ~2024-01-27 | XR_ITS ---
Left foot Technique: AP and lateral views were obtained. Clinical History: Joint pain Findings: No acute fracture or dislocation is seen. There is orthopedic fusion across the talonavicul ar articulation. The navicular appears chronically small and compressed, which could reflect chronic fracture or AVN.. Joint there is moderate degenerative change of the first MTP joint. Soft tissues ar e unremarkable. 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 Moderate degenerative change of the first MTP joint. Reviewed, dictated and finalized at location . 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 Moderate degenerative change of the first MTP joint.
--- NOTE | ~2024-01-27 | XR_ITS ---
Right Shoulder Technique: AP and scapular Y views were obtained. Clinical History: Pain Findings: No fracture or dislocation is seen. There is severe degenerative change of the glenohumeral joint, joint space narrowing and osteophyte formation. There is minimal AC joint degenerative change .. Soft tissues are unremarkable. Impression: Severe glenohumeral joint degenerative change. Reviewed, dictated and finalized at location . Impression: Severe glenohumeral joint degenerative change.
--- NOTE | ~2024-01-27 | XR_ITS ---
Right Hand Technique: PA and lateral views were obtained. Clinical History: Joint pain Findings: No acute fracture or dislocation is seen. There is moderate to advanced degenerative change at the fifth PIP joint. There is mild degenerative change of the fourth PIP joint. There is mild deg enerative change of the second and third metacarpal phalangeal joints. Nonspecific soft tissue calcif ications are present about the distal ulna, possibly chronic ulnar styloid fracture fragment or soft tissue calcification.. Impression: Polyarticular osteoarthritis, as detailed above. Reviewed, dictated and finalized at location M. Impression: Polyarticular osteoarthritis, as detailed above.
--- NOTE | ~2024-01-27 | XR_ITS ---
Right foot Technique: AP and lateral views were obtained. Clinical History: Joint pain Findings: No acute fracture or dislocation is seen. There is hallux valgus, with mild degenerative ch nestor of the first MTP joint.. Soft tissues are unremarkable. Impression: Hallux valgus with mild degenerative change of the first MTP joint. Reviewed, dictated and finalized at location . Impression: Hallux valgus with mild degenerative change of the first MTP joint.
--- NOTE | ~2024-01-27 | XR_ITS ---
Left ankle Technique: AP and lateral views were obtained. Clinical History: Joint pain Findings: No acute fracture or dislocation is seen. There is orthopedic fusion across the talonavicul ar articulation, with small sclerotic and narrowed navicular. Soft tissues are otherwise unremarkable . Impression: Orthopedic fusion across the talonavicular articulation, with advanced degenerative change and probab le chronic AVN or fracture deformity of the navicular. Correlate with relevant clinical history. No acute abnormality evident. Reviewed, dictated and finalized at location M. 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 Co rrelate with relevant clinical history. No acute abnormality evident.
--- NOTE | ~2024-01-27 | XR_ITS ---
Left Shoulder Technique: AP and scapular Y views were obtained. Clinical History: Pain Findings: No fracture or dislocation is seen. Osseous alignment is anatomic. There is moderate glenoh umeral joint degenerative change, probable joint space narrowing and small inferomedial humeral head osteophyte. There is [id number] AC joint degenerative change.. Soft tissues are unremarkable. Impression: Degenerative changes, as detailed above. Reviewed, dictated and finalized at location M. Impression: Degenerative changes, as detailed above.
--- NOTE | ~2024-01-27 | XR_ITS ---
Left Knee Technique: AP and lateral views were obtained. Clinical History: Joint pain Findings: No fracture or dislocation is seen. There is advanced degenerative change of the lateral co mpartment, with lateral joint line osteophyte formation and remodeling of the lateral tibial plateau articular surface. There is additional moderate osteophyte formation of the lateral and patellofemora l compartment.. Soft tissues are unremarkable. No joint effusion is seen. Impression: Advanced degenerative change lateral compartment. Moderate to advanced degenerative change of the med ial and patellofemoral compartment. Reviewed, dictated and finalized at location M. Impression: Advanced degenerative change lateral compartment. Moderate to advanced degenera tive change of the medial and patellofemoral compartment.
--- NOTE | ~2024-01-27 | XR_ITS ---
Left Hand Technique: PA and lateral views were obtained. Clinical History: Joint pain Findings: No acute fracture or dislocation is seen. Questionable widening of the scapholunate interva l. There is moderate degenerative change of the first carpal metacarpal joint. There are minimal scat tered degenerative changes interphalangeal joints in the hand. There is mild degenerative change of t he second metacarpophalangeal joint and third metacarpophalangeal joint. There is advanced degenerati ve change at the radiolunate articulation. Soft tissues are unremarkable. Impression: Polyarticular osteoarthritis, as detailed above. Questionable widening of the scaphoid lunate interval. Consider dedicated wrist radiographs for furth er evaluation. Reviewed, dictated and finalized at location M. Impression: Polyarticular osteoarthritis, as detailed above. Questionable widening of the scaphoid lunate interval. Consider dedicated wrist radiographs for further evaluation.
--- NOTE | ~2024-01-27 | XR_ITS ---
Right ankle Technique: AP and lateral views were obtained. Clinical History: Joint pain Findings: No acute fracture or dislocation is seen. Osseous alignment is anatomic. Ankle mortise and other visualized joint spaces are preserved. Soft tissues are otherwise unremarkable. Impression: Unremarkable right ankle. Reviewed, dictated and finalized at location . Impression: Unremarkable right ankle.
[2024-01-27 10:36] LABS: Creatinine Urine 47.5 mg/dL
[2024-01-27 10:42] LABS: MALB Creatinine Ratio < 12.6 mg/g (0-30); Microalbumin Urine Random < 6.0 mg/L (0-16.7)
[2024-01-27 10:52] LABS: CRP 0.6 mg/dL (<1.0); Magnesium 2.4 mg/dL (1.6-2.3); Uric Acid 4.4 mg/dL (2.5-7.5)
[2024-01-27 11:34] LABS: Ferritin 9.47 ng/mL (11.1-264)
[2024-01-28 12:39] LABS: Protein, Total 7.1 g/dL (6.1-8.1)
[2024-01-28 12:48] LABS: Creatinine, Random Urine 47 mg/dL (20-275); Total Protein/Creatinine Ratio 191 mg/g creat (24-184)
[2024-01-28 16:18] LABS: Albumin 4.2 g/dL (3.8-4.8); Alpha 1 Globulin 0.3 g/dL (0.2-0.3); Alpha 2 Globulin 0.8 g/dL (0.5-0.9); Beta 1 Globulin 0.5 g/dL (0.4-0.6)
[2024-01-31 01:44] LABS: Anti Cardio Antibody IgM <2.0 MPL-U/mL; Anti Cardiolipin Antibody IgA <2.0 APL-U/mL; Anti Cardiolipin Antibody IgG 3.2 GPL-U/mL
[2024-01-31 20:34] LABS: Immunofixation, Serum Normal pattern.
[2024-02-01 11:39] LABS: Vitamin B1 68 nmol/L (8-30)
[2024-02-01 15:09] LABS: Vitamin B6 81.7 ng/mL (2.1-21.7)
[2024-02-03 07:48] LABS: Reference Lab Test Result 18.28
== END 2024-01-27 08:51 | disposition home or self-care (01) ==
PROVIDERS: PCP Family Medicine; Referring Provider Nurse Practitioner Family; Visit Provider Internal Medicine Rheumatology
DX: M25.50 Pain in unspecified joint (principal); E11.9 Type 2 diabetes mellitus without complications; G62.9 Polyneuropathy, unspecified; R53.83 Other fatigue; M79.10 Myalgia, unspecified site; E55.9 Vitamin D deficiency, unspecified; D50.9 Iron deficiency anemia, unspecified; M19.011 Primary osteoarthritis, right shoulder; M19.012 Primary osteoarthritis, left shoulder; M17.0 Bilateral primary osteoarthritis of knee
CPT/HCPCS: 36415; 73030; 73120; 73560; 73600; 73620; 82043; 82570; 82728; 83735; 84155; 84156; 84165; 84166; 84207; 84425; 84550; 86140; 86147; 86334; 86335

== ENCOUNTER 2024-02-04 14:45 | Outpatient (CLI) | payer MEDICARE, SELFPAY ==
--- NOTE | ~2024-02-04 | MR_ITS ---
EXAMINATION: MR brain/brain stem wo con DATE: 02/04/2024 16:24 INDICATION: Ataxia. TECHNIQUE: Magnetic resonance imaging (MRI) of the brain and brainstem was performed without intraven ous contrast. COMPARISON: None. FINDINGS: There are scattered areas of nonspecific increased T2-weighted signal intensity in the cere bral white matter, which is within normal limits for the patient's age. There is no intracranial hemo rrhage, acute infarction, or abnormal intracranial mass lesion. The ventricles are normal in size. Th e mastoid air cells are normal. There is mild mucosal thickening in the ethmoid sinuses. The orbits a re normal. IMPRESSION: 1. Normal aging brain. Reviewed, dictated and finalized at location E. IMPRESSION: 1. Normal aging brain.
== END 2024-02-04 14:46 | disposition home or self-care (01) ==
PROVIDERS: PCP Family Medicine; Visit Provider Student in an Organized Health Care Education/Training Program
DX: R27.0 Ataxia, unspecified (principal)
CPT/HCPCS: 70551

== ENCOUNTER 2024-02-13 13:04 | Outpatient (CLI) | payer MEDICARE, SELFPAY ==
--- NOTE | ~2024-02-13 | DEXA_ITS ---
Bone Density Report Name: COY FOWLER Age: 73 Sex: Female Ethnicity: White Date of : 1950 Indication: postmenopausal; screening for osteoporosis; height loss; prior fracture; cancer; Referring Provider: BLAYNE EDWARDS Study: Bone densitometry was performed. Exam Date: February 13, 2024 Accession number: [id number] Bone Density: Region BMD T-score Z-score Classification AP Spine(L1-L4) 1.357 2.8 5.0 Normal Femoral Neck (Left) 0.649 -1.8 0.1 Osteopenia Total Hip (Left) 0.781 -1.3 0.3 Osteopenia World Health Organization criteria for BMD impression classify patients as: Normal (T-score at or above -1.0), Osteopenia (T-score between -1.0 and -2.5), or Osteoporosis (T-score at or below -2.5). 10-year Fracture Risk: FRAX not reported because: Prior hip or vertebral fracture Clinical Information Provided by Patient: Have had a previous hip or vertebral fracture Has had a low trauma fracture Has used the following medications: Vitamin D, Calcium Has the following medical conditions: Cancer Patient maximum height was 67 Menopause Age: 52 Does not regularly consume dairy products Onset of menses at age 19 Number of children 0 Impression: The patient has low bone mass, based on the Left Femoral Neck T-score. The patient has risk factors, including: previous fracture. Discussion: INCREASED RISK OF FRACTURE DUE TO HISTORY OF FRACTURE. The patient's previous fracture puts the patient at high risk of a future fracture. In untreated patients, the risk of osteoporotic fracture increases approximately two-fold for each 1.0 SD decrease in T-score. Low bone density is not the only risk factor for fracture; also consider factors such as patient's age, frailty or poor health, risk of falling, risk of injury, previous osteoporotic fracture, family history of osteoporosis, cigarette smoking, low body weight, etc. Not everyone with a low trauma fracture has osteoporosis; osteomalacia and other metabolic bone disorders should also be considered. Patients who have osteoporosis should be evaluated for specific diseases and conditions (secondary causes) that may cause or contribute to bone loss and fracture risk. National Osteoporosis Foundation (NOF) recommends pharmacologic intervention for patients with a prior hip or vertebral fracture regardless of BMD T-score. The patient should follow a healthful lifestyle (good nutrition with adequate calcium and vitamin D, and appropriate weight-bearing exercise). Follow-Up: Consider a repeat BMD and Vertebral Fracture Assessment (VFA) exam in 2 years or sooner if medically necessary, to reassess this patient's status. Reported by: FABIEN on 02/13/2024 1:37:00 PM. Reviewed, dictated and finalized at location Myrna HERNANDEZ
== END 2024-02-13 13:05 | disposition home or self-care (01) ==
LOC: ANHIMG 13:05
PROVIDERS: PCP Family Medicine; Visit Provider Family Medicine
DX: Z78.0 Asymptomatic menopausal state (principal); M85.852 Other specified disorders of bone density and structure, left thigh
CPT/HCPCS: 77080

== ENCOUNTER 2024-04-08 13:58 | Outpatient (CLI) | payer MEDICARE, SELFPAY ==
--- NOTE | ~2024-04-08 | MR_ITS ---
EXAMINATION: MR cervical spine wo con DATE: 04/08/2024 14:47 INDICATION: Neck pain. TECHNIQUE: Magnetic resonance imaging (MRI) of the cervical spine was performed without intravenous c ontrast. COMPARISON: None FINDINGS: There is 2 mm retrolisthesis of C3 on C4, 3 mm anterolisthesis of C4 on C5, 3 mm retrolisth esis of C5 on C6, and 3 mm anterolisthesis of C7 on T1 and T1 on T2. Vertebral body heights are eunice l. There is mildly decreased disc height at C2-C3, severely decreased disc height at C3-C4, mildly de creased disc height at C4-C5, and severely decreased disc height from C5-C6 through T1-T2. The spinal cord signal intensity is normal. The following disc levels are specifically discussed: C2-C3: There is a left central extrusion. There is mild right and severe left uncovertebral joint ost eoarthritis. There is severe bilateral facet joint osteoarthritis. There is mild right and moderate l eft neural foraminal stenosis. There is no central canal stenosis. C3-C4: The disc is bulging. There is severe bilateral uncovertebral joint osteoarthritis. There is se golden bilateral facet joint osteoarthritis. There is moderate bilateral neural foraminal stenosis. The re is mild central canal stenosis. C4-C5: The disc is bulging. There is mild bilateral uncovertebral joint osteoarthritis. There is ronal re bilateral facet joint osteoarthritis. There is mild bilateral neural foraminal stenosis. There is mild central canal stenosis. C5-C6: The disc is bulging. There is severe bilateral uncovertebral joint osteoarthritis. There is mo derate bilateral facet joint osteoarthritis. There is mild right and moderate left neural foraminal s tenosis. There is mild central canal stenosis with ventral indentation of the spinal cord. C6-C7: The disc is bulging. There is severe bilateral uncovertebral joint osteoarthritis. There is mo derate bilateral facet joint osteoarthritis. There is mild bilateral neural foraminal stenosis. There is mild central canal stenosis. C7-T1: The disc does not extend beyond the endplate margin. There is severe bilateral uncovertebral j oint osteoarthritis. There is severe bilateral facet joint osteoarthritis. There is mild bilateral ne ural foraminal stenosis. There is mild central canal stenosis. IMPRESSION: 1. Severe cervical spondylosis. Reviewed, dictated and finalized at location A.
== END 2024-04-08 13:59 | disposition home or self-care (01) ==
PROVIDERS: PCP Family Medicine; Visit Provider Internal Medicine Rheumatology
DX: M47.892 Other spondylosis, cervical region (principal)
CPT/HCPCS: 72141

== ENCOUNTER 2024-04-14 07:45 | Outpatient (CLI) | payer MEDICARE, SELFPAY ==
[2024-04-14 08:46] LABS: Basophils Absolute Auto 0.1 K/mm3 (0.0-0.1); Basophils Percent Auto 0.8 % (0.2-1.2); Eosinophils Absolute Auto 0.2 K/mm3 (0-0.3); Eosinophils Percent Auto 2.8 % (0-4.4); Hematocrit 43.2 % (37.0-47.0); Hemoglobin 13.9 g/dL (12.0-15.0); Immature Granulocyte Absolute 0.02 K/mm3 (0.00-0.031); Immature Granulocyte Percent A 0.3 % (0-0.5); Lymphocytes Percent Auto 20.3 % (18.3-44.2); Mean Corpuscular HGB Conc 32.2 g/dl (32-36); Mean Corpuscular Volume 90.2 fl (80-100); Mean Platelet Volume 9.2 fl (7.4-10.4); Monocytes Absolute Auto 0.7 K/mm3 (0.1-0.6); Monocytes Percent Auto 8.5 % (2.6-8.5); Neutrophils Absolute Auto 5.3 K/mm3 (1.3-6.7); Neutrophils Percent Auto 67.3 % (45.5-73.1); Platelet Count Result 372 k/mm3 (150-375); Red Blood Count 4.79 M/mm3 (4.2-5.4); Red Cell Distribution Width 14.5 % (11.5-14.5); White Blood Count 7.9 K/mm3 (4.5-10.0)
[2024-04-14 08:53] LABS: Alanine Aminotransferase 26 U/L (6-35); Albumin Level 4.8 g/dL (3.5-5.1); Alkaline Phosphatase 109 U/L (38-126); Anion Gap 12 mmol/L (4-12); Aspartate Amino Transferase 33 U/L (14-36); Bilirubin,Total 0.4 mg/dL (0.2-1.3); Blood Urea Nitrogen 15 mg/dL (7-17); Calcium 9.4 mg/dL (8.4-10.2); Carbon Dioxide 31 mmol/L (22-30); Chloride 88 mmol/L (98-107); Estimated Glomerular Filt Rate > 60; Glucose 141 mg/dL (65-110); Potassium 4.3 mmol/L (3.4-5.0); Sodium 131 mmol/L (137-145)
[2024-04-14 09:16] LABS: Vitamin D 25 Hydroxy 55.8 ng/mL
[2024-04-14 09:46] LABS: Creatinine Urine 43.7 mg/dL
[2024-04-14 09:47] LABS: Vitamin B12 > 1000.0 pg/mL (239-931)
[2024-04-14 10:25] LABS: Microalbumin Urine Random < 6.0 mg/L (0-16.7)
[2024-04-14 10:26] LABS: MALB Creatinine Ratio < 13.7 mg/g (0-30)
[2024-04-14 13:58] LABS: Cholesterol 268 mg/dL (0-200); HDL Direct 47 mg/dL; Triglycerides 191 mg/dL (<150)
[2024-04-14 14:04] LABS: LDL Cholesterol Direct 173 mg/dL
[2024-04-15 06:03] LABS: SS-A <1.0 NEG AI (<1.0 NEG); SS-B <1.0 NEG AI (<1.0 NEG)
[2024-04-16 20:24] LABS: Immunofixation, Serum Normal pattern.
[2024-04-17 05:33] LABS: Vitamin B6 60.4 ng/mL (2.1-21.7)
[2024-04-17 14:59] LABS: Vitamin B1 28 nmol/L (8-30)
[2024-04-27 07:31] LABS: Reference Lab Test Name Paraneoplastic Ab Rf
== END 2024-04-14 07:46 | disposition home or self-care (01) ==
LOC: ANHLAB 07:53
PROVIDERS: PCP Family Medicine; Referring Provider Family Medicine; Visit Provider Student in an Organized Health Care Education/Training Program
DX: G62.9 Polyneuropathy, unspecified (principal); R27.0 Ataxia, unspecified; E11.65 Type 2 diabetes mellitus with hyperglycemia; E78.5 Hyperlipidemia, unspecified; E55.9 Vitamin D deficiency, unspecified
CPT/HCPCS: 36415; 80053; 80061; 82043; 82306; 82607; 83036; 84207; 84425; 84443; 85025; 86235; 86334; 86335

== ENCOUNTER 2024-04-28 09:36 | Outpatient (CLI) | payer MEDICARE, SELFPAY ==
--- NOTE | ~2024-04-28 | MMUS_ITS ---
EXAMINATION: MM diagnostic aster RT w liliya, US breast RT limited HISTORY: Follow-up right breast abnormalities TECHNIQUE: Additional 3-D tomosynthesis images of the right breast were performed and synthetic 2-D i mages were generated. CAD analysis was submitted and interpreted. High resolution Limited right breas t ultrasound was performed. COMPARISON: 10/20/2023 BREAST PARENCHYMAL COMPOSITION: Not dense: There are scattered areas of fibroglandular density. FINDINGS: MAMMOGRAPHIC FINDINGS: The area of asymmetry in the upper outer quadrant has significantly decreased in size compared with p rior examination, likely resolving postoperative seroma or hematoma. No new masses, calcifications or architectural distortion. ULTRASOUND: Limited right breast ultrasound: At 10:00, 10 cm from the nipple there is a significantly decreased s ize complex hypoechoic and cystic structure measures approximately 5.6 x 1.3 x 4.7 cm in aggregate. A gain, this likely corresponds to a maturing postsurgical seroma/hematoma IMPRESSION: 1. Decreasing size of ill-defined asymmetry in the upper-outer quadrant of the right breast. By ultra sound this appears to be a centrally cystic with surrounding rind of hypoechoic soft tissue measuring 5.6 x 1.3 x 4.7 cm, most likely resolving postsurgical seroma/hematoma. 2. Recommend 6 month follow-up Limited right breast ultrasound BI-RADS category 3, probably benign findings. Reviewed, dictated and finalized at location B. IMPRESSION: 1. Decreasing size of ill-defined asymmetry in the upper-outer quadrant of the right breast. By ultrasound this appears to be a centrally cystic with surround ing rind of hypoechoic soft tissue measuring 5.6 x 1.3 x 4.7 cm, most likely re solving postsurgical seroma/hematoma. 2. Recommend 6 month follow-up Limited right breast ultrasound BI-RADS category 3, probably benign findings.
== END 2024-04-28 09:37 | disposition home or self-care (01) ==
LOC: MICIMG 09:36
PROVIDERS: PCP Family Medicine; Visit Provider Surgery
DX: N64.89 Other specified disorders of breast (principal)
CPT/HCPCS: 76642; 77061; 77065; G0279

== ENCOUNTER 2024-11-02 09:39 | Outpatient (CLI) | payer MEDICARE, SELFPAY ==
--- NOTE | ~2024-11-02 | MM_ITS ---
EXAMINATION: MM diagnostic aster BI w liliya HISTORY: History of right breast cancer TECHNIQUE: Additional 3-D tomosynthesis images of the breasts were performed and synthetic 2-D images were generated. CAD analysis was submitted and interpreted. COMPARISON: Comparison to multiple prior studies sequentially, with oldest reviewed study dated 09/11. BREAST PARENCHYMAL COMPOSITION: Not dense: There are scattered areas of fibroglandular density. FINDINGS: Stable postoperative changes of the right breast. There is increased trabeculation and skin thickening, consistent with previous radiation therapy. No new masses, calcifications or architectur al distortion in either breast to suggest malignancy. IMPRESSION: 1. No mammographic evidence for malignancy in either breast. 2. Routine yearly screening mammogram and regular clinical breast examination are recommended. BI-RADS Category 2: Benign finding(s). Reviewed, dictated and finalized at location A. IMPRESSION: 1. No mammographic evidence for malignancy in either breast. 2. Routine yearly screening mammogram and regular clinical breast examination a re recommended. BI-RADS Category 2: Benign finding(s).
--- NOTE | ~2024-11-02 | US_ITS ---
US breast RT limited 11/02/2024 11:00 Indication: Follow-up right breast masses by ultrasound. Procedure: High-resolution Limited ultrasound of the right breast Comparison: Comparison to multiple prior studies sequentially, with oldest reviewed study dated 04/11. Findings: At 10:00, 10 cm from the nipple there is a 1.5 cm cyst. No suspicious masses to suggest mal ignancy. At 10:00, 10 cm from the nipple there is a 4 mm cyst. Also at this location is a 2 mm cyst. No solid masses. No abnormal enhancement. Impression: 1: Multiple simple cysts of the right breast. No evidence for malignancy in the right breast. Routine yearly screening mammogram and regular clinical breast examination are recommended. BI-RADS CATEGORY 2 - BENIGN FINDINGS Reviewed, dictated and finalized at location A. Impression: 1: Multiple simple cysts of the right breast. No evidence for malignancy in the right breast. Routine yearly screening mammogram and regular clinical breast examination are recommended. BI-RADS CATEGORY 2 - BENIGN FINDINGS
== END 2024-11-02 09:40 | disposition home or self-care (01) ==
LOC: MICIMG 09:41
PROVIDERS: PCP Family Medicine; Visit Provider Surgery
DX: N60.11 Diffuse cystic mastopathy of right breast (principal); Z85.3 Personal history of malignant neoplasm of breast
CPT/HCPCS: 76642; 77062; 77066; G0279

== ENCOUNTER 2025-01-12 08:33 | Outpatient (CLI) | payer MEDICARE, SELFPAY ==
--- OUTSIDE RECORDS SUMMARY | 2025-01-12 08:54 | XMS_ITS | Clinical Summary ---
Author Organization [facility] Address [address] [place] [address] Care Team Providers Care Medical Transcriptionist Name Role Phone Alana Delgado MD Primary Care Provider Allergies No known active allergies Medications gabapentin (NEURONTIN) 300 mg capsule 9 Active atorvastatin (LIPITOR) 40 mg tablet 9 Active metFORMIN (GLUCOPHAGE XR) 500 mg Extended Release 24 hour tablet 9 Active lisinopril-hydr oCHLOROthiazide (ZESTORETIC) 20-25 mg tablet 9 Active diclofenac sodium (VOLTAREN) 75 mg Tablet, Delayed Release (E.C.) 9 Active ONETOUCH VERIO Strip 9 Active acetaminophen 325 mg Capsule Take by mouth. Active clotrimazole-be tamethasone (LOTRISONE) 1-0.05 % Cream APPLY TWICE DAILY TO THE AFFECTED AREA AND SURROUNDING AREAS OF THE SKIN IN THE MORNING AND EVENING FOR 2 WEEKS 3 9 Active lisinopril (QBRELIS) 1 mg/mL Solution Take by mouth. 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 Microcalcification of right breast on mammogram 02/10/2019 Family History Medical History Relation Name Comments Lung Cancer Maternal Aunt unknown Relation Name Status Comments Maternal Aunt unknown (Age 56) Social History Tobacco Use Types Packs/Day Years Used Date Smoking Tobacco: Former Cigarettes Q uit: 02/11/2005 Smokeless Tobacco: Never Tobacco Cessation:Counseling Given: Not Answered Comments No Sex and Gender Information Value Date Recorded Sex Assigned at Not on file Legal Sex Female 11:41 AM CDT Gender Identity Not on file Sexual Orientation Not on file Last Filed Vital Signs Vital Sign Reading Time Taken Comments Blood Pressure 134/78 10/02/2022 10:31 AM ACCOUNTS PAYABLE ASSOCIATE Pulse 97 10/02/2022 10:31 AM ACCOUNTS PAYABLE ASSOCIATE Temperature 36.4 C (97.5 F) 10/02/2022 10:31 AM ACCOUNTS PAYABLE ASSOCIATE Respiratory Rate 10 10/02/2022 10:31 AM ACCOUNTS PAYABLE ASSOCIATE Oxygen Saturation 98% 10/02/2022 10:31 AM ACCOUNTS PAYABLE ASSOCIATE Inhaled Oxygen Concentration - - Weight 96.2 kg (212 lb) 10/02/2022 10:31 AM ACCOUNTS PAYABLE ASSOCIATE Height 167.6 cm (5' 6) 04/18/2022 10:22 AM CDT Body Mass Index 34.22 04/18/2022 10:22 AM CDT Plan of Treatment Health Maintenance Due Date Last Done Comments DTAP/TDAP/TD VACCINES (1 - Tdap) 1971 COLORECTAL SCREENING 1997 Colorectal Cancer Screening 1997 FIT-DNA Q 3 years 1997 FIT/FOBT Q 1 year 1997 Flex Sig/CT Colonography Q 5 years 1997 PNEUMOCOCCAL VACCINE 50+ YEA RS (1 of 1 - PCV) 2002 ZOSTER VACCINE (1 of 2) 2002 OSTEOPOROSIS SCREENING 2017 BREAST CANCER SCREENING 07/06/2021 07/06/20 20, 02/08/2020, 08/26/2019, Additional history exists INFLUENZA VACCINE (#1) 2024 RSV VACCINE (60+ or ) (1 - 1-dose 75+ series) 2027 Procedures Procedure Name Priority Date/Time Associated Diagnosis Comments MAMMO 3D MIRELLA DIAGNOSTIC BILAT W OR WO CAD Routine 07/06/2020 Ductal carcinoma in situ (DCIS) of right breast from Last 3 Months or Most Recently Relevant to Health Maintenance Results * MAMMO DIAG BILAT 3D MIRELLA W OR WO CAD (07/06/2020) Anatomical Region Laterality Modality Breast Bilateral Mammography Jono Hauser MD MAMMO ORDERABLES Final Result from Last 3 Months or Most Recently Relevant to Health Maintenance Insurance Care Teams Medical Transcriptionist Relationship Specialty Start Date End Date Alana Delgado MD [address] [place] [address] PCP - General Family Practice 11/16/18
--- OUTSIDE RECORDS SUMMARY | 2025-01-12 08:54 | XMS_ITS | Clinical Summary ---
Author Organization [facility] Address [address] [place] [address] Care Team Providers Care Simulation Educator Name Role Phone Alana Delgado MD Primary Care Provider Source Comments [facility],non-[facility] Affiliates and Associated Physician Practices is amultiple site organization consisting of ambulatory clinics and hospital sitesin [place], [place], [place] and [place]. This disclosure is being madepursuant to the Care Everywhere program and may not contain all information available regarding this patient. Last updated 18.[facility] [employer] Social History Tobacco Use Types Packs/Day Years Used Date Smoking Tobacco: Never Assessed Comments Unknown Sex and Gender Information Value Date Recorded Sex Assigned at Not on file Legal Sex Female 12:15 PM CDT Gender Identity Not on file Sexual Orientation Not on file Plan of Treatment Health Maintenance Due Date Last Done Comments BONE DENSITY TESTING 1950 COLOGUARD (AGES 45-75) - COL ON CA SCREENING 1950 COLON MONITORING 1950 COLONOSCOPY - COLON CA SCREENING 1950 CT COLONOGRAPHY - COLON CA SCREENING 1950 Colorectal Cancer Screening 1950 FIT - COLON CA SCREENING 1950 FLEX SIG - COLON CA SCREENING 1950 LIPID TESTING 1950 MAMMOGRAM 1950 HEPATITIS C SCREENING 08/07/1970 DTAP/TDAP/TD VACCINES (1 - Tdap) 1971 PNEUMOCOCCAL VACCINE 50+ (1 of 1 - PCV) 2002 ZOSTER VACCINE (1 of 2) 2002 COVID-19 VACCINE (1 - 2023-2 5 season) 2024 DEPRESSION SCREENING 07/28/2024 MEDICARE AWV CALENDAR YEAR 2024 INFLUENZA VACCINE (Season Ended) 2025 Respiratory Syncytial Virus (RSV) Vaccine Pt: or over 60 yrs (1 - 1-dose 75+ series) 2027 HEPATITIS B VACCINE Aged Out No longe r eligible based on patient's age to complete this topic HIB VACCINE Aged Out No longer eligi ble based on patient's age to complete this topic HPV VACCINE Aged Out No longer eligi ble based on patient's age to complete this topic MENINGOCOCCAL (Group B) VACC INE SHARED DECISION-MAKING Aged Out No longer eligibl e based on patient's age to complete this topic MENINGOCOCCAL GROUPS A/C/Y/W VACCINE Aged Out No longer eligible b ased on patient's age to complete this topic Insurance [facility] MANAGED MEDICARE ADV Member Subscriber Plan / Payer (Ef fective 2018-Present) Name:Coy Vaughn Relation to Subscriber:Self Name:COY VAUGHN Payer ID:[id number] (NAIC) Type:Medicare-Managed Care Address: [place] [id number] [facility] MANAGED MEDICARE ADV Care Teams Simulation Educator Relationship Specialty Start Date End Date Alana Delgado MD [address] [place] [id number] PCP - General Family Medicine 03/05/19
[2025-01-12 09:32] LABS: Basophils Absolute Auto 0.1 K/mm3 (0.0-0.1); Basophils Percent Auto 0.8 % (0.2-1.2); Eosinophils Absolute Auto 0.2 K/mm3 (0-0.3); Eosinophils Percent Auto 2.6 % (0-4.4); Hematocrit 42.3 % (37.0-47.0); Hemoglobin 13.6 g/dL (12.0-15.0); Immature Granulocyte Absolute 0.02 K/mm3 (0.00-0.031); Immature Granulocyte Percent A 0.3 % (0-0.5); Lymphocytes Absolute Auto 2.16 K/mm3 (0.9-3.2); Mean Corpuscular HGB Conc 32.2 g/dl (32-36); Mean Corpuscular Hemoglobin 29.1 pg (26-34); Mean Corpuscular Volume 90.4 fl (80-100); Mean Platelet Volume 9.6 fl (7.4-10.4); Monocytes Absolute Auto 0.6 K/mm3 (0.1-0.6); Monocytes Percent Auto 7.6 % (2.6-8.5); Neutrophils Absolute Auto 4.9 K/mm3 (1.3-6.7); Neutrophils Percent Auto 61.7 % (45.5-73.1); Platelet Count Result 398 k/mm3 (150-375); Red Blood Count 4.68 M/mm3 (4.2-5.4); Red Cell Distribution Width 13.5 % (11.5-14.5)
[2025-01-12 09:45] LABS: Hemoglobin A1C 7.1 % (<5.7)
[2025-01-12 10:21] LABS: Creatinine Urine 85.7 mg/dL
[2025-01-12 10:23] LABS: Alanine Aminotransferase 30 U/L (6-35); Albumin Level 4.6 g/dL (3.5-5.1); Alkaline Phosphatase 109 U/L (38-126); Anion Gap 10 mmol/L (4-12); Aspartate Amino Transferase 39 U/L (14-36); Bilirubin,Total 0.5 mg/dL (0.2-1.3); Blood Urea Nitrogen 18 mg/dL (7-17); Calcium 9.3 mg/dL (8.4-10.2); Carbon Dioxide 28 mmol/L (22-30); Chloride 98 mmol/L (98-107); Cholesterol 128 mg/dL (0-200); Estimated Glomerular Filt Rate > 60; Glucose 129 mg/dL (65-110); HDL Direct 35 mg/dL; Potassium 3.7 mmol/L (3.4-5.0); Sodium 136 mmol/L (137-145); Total Protein 7.9 g/dL (6.3-8.2); Triglycerides 155 mg/dL (<150)
[2025-01-12 10:34] LABS: LDL Cholesterol Direct 62 mg/dL
[2025-01-12 11:24] LABS: Vitamin B12 > 1000.0 pg/mL (239-931)
[2025-01-12 11:39] LABS: MALB Creatinine Ratio < 7.0 mg/g (0-30); Microalbumin Urine Random < 6.0 mg/L (0-16.7)
== END 2025-01-12 08:34 | disposition home or self-care (01) ==
PROVIDERS: PCP Family Medicine; Visit Provider Family Medicine
DX: E78.5 Hyperlipidemia, unspecified (principal); I10 Essential (primary) hypertension; E53.8 Deficiency of other specified B group vitamins; E11.9 Type 2 diabetes mellitus without complications; F32.9 Major depressive disorder, single episode, unspecified; G62.9 Polyneuropathy, unspecified
CPT/HCPCS: 36415; 80053; 80061; 82043; 82607; 83036; 84443; 85025

== ENCOUNTER 2025-06-28 13:32 | Outpatient (CLI) | payer MEDICARE, SELFPAY ==
--- NOTE | 2025-06-28 | ECG_ITS ---
Test Date: 2025-06-28 14:18:35 Measurements Intervals [place] Rate: 95 P: 19 VA: 189 QRS: -8 QRSD: 69 T: 66 QT: 295 QTc: 371 Interpretive Statements SINUS RHYTHM POSSIBLE ANTERIOR MYOCARDIAL INFARCTION , OF INDETERMINATE AGE INFERIOR INFARCT, AGE INDETERMINATE ST-T WAVE ABNORMALITY IN HIGH LATERAL LEADS- CONSIDER ISCHEMIA BORDERLINE ECG- I, II, III, AVR, AVL, AVF, V1 ABNORMAL ECG No previous ECG available for comparison Electronically Signed On 06-28-2025 14:49:14 BODY WORKER by Dwight Lehman D.O.
--- OUTSIDE RECORDS SUMMARY | 2025-06-28 14:34 | XMS_ITS | Clinical Summary ---
Author Organization [facility] Address [address] [place] [address] Care Team Providers Care Disk Sharpener Name Role Phone Alana Delgado MD Primary Care Provider Source Comments [facility],non-[facility] Affiliates and Associated Physician Practices is amultiple site organization consisting of ambulatory clinics and hospital sitesin [place], [place], [place] and [place]. This disclosure is being madepursuant to the Care Everywhere program and may not contain all information available regarding this patient. Last updated 18.[facility] [employer] Social History Tobacco Use Types Packs/Day Years [...] 2002 ZOSTER VACCINE (1 of 2) 2002 DEPRESSION SCREENING 07/28/2024 MEDICARE AWV CALENDAR YEAR 2024 COVID-19 VACCINE ( - 2024-2 6 season) 2025 INFLUENZA VACCINE (#1) 2025 Respiratory Syncytial Virus (RSV) Vaccine Pt: [...] patient's age to complete this topic Insurance [facility] MANAGED MEDICARE ADV Member Subscriber Plan / Payer (Ef fective 2018-Present) Name:Coy Vaughn Relation to Subscriber:Self Name:COY VAUGHN Payer ID:[id number] (NAIC) Type:Medicare-Managed Care Address: [place] [id number] [facility] [place] [address] Care Teams Disk Sharpener Relationship Specialty Start Date End Date Alana Delgado MD [address] [place] [id number] PCP - General Family Medicine 03/05/19
--- OUTSIDE RECORDS SUMMARY | 2025-06-28 14:34 | XMS_ITS | Clinical Summary ---
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 Microcalcification of right breast on mammogram 02/10/2019 Family History Medical History Relation Name Comments Lung Cancer Maternal Aunt unknown Relation Name Status Comments Maternal Aunt unknown (Age 56) Social History Tobacco Use Types Packs/Day Years Used Date Smoking Tobacco: Former Cigarettes 0.3 Q uit: 02/11/2005 Smokeless Tobacco: Never Tobacco Cessation:Counseling Given: Not Answered Comments No Sex and Gender Information Value Date Recorded Sex Assigned at Not on file Legal Sex Female 11:41 AM CDT Gender Identity Not on file Sexual Orientation Not on file Last Filed Vital Signs Vital Sign Reading Time Taken Comments Blood Pressure 134/78 10/02/2022 10:31 AM BOX SEALING MACHINE FEEDER Pulse 97 10/02/2022 10:31 AM BOX SEALING MACHINE FEEDER Temperature 36.4 C (97.5 F) 10/02/2022 10:31 AM BOX SEALING MACHINE FEEDER Respiratory Rate 10 10/02/2022 10:31 AM BOX SEALING MACHINE FEEDER Oxygen Saturation 98% 10/02/2022 10:31 AM BOX SEALING MACHINE FEEDER Inhaled Oxygen Concentration - - Weight 96.2 kg (212 lb) 10/02/2022 10:31 AM BOX SEALING MACHINE FEEDER Height 167.6 cm (5' 6) 04/18/2022 10:22 [...] 08/26/2019, Additional history exists INFLUENZA VACCINE (#1) 2025 RSV VACCINE (60+ or ) (1 - [...] Relevant to Health Maintenance Insurance Care Teams Hog Pusher Relationship Specialty Start Date End Date Alana Delgado MD [address] [place] [address] PCP - General Family Practice 11/16/18
== END 2025-06-28 13:33 | disposition home or self-care (01) ==
PROVIDERS: PCP Family Medicine
DX: Z01.818 Encounter for other preprocedural examination (principal); R94.31 Abnormal electrocardiogram [ECG] [EKG]
CPT/HCPCS: 93005